=== PATIENT | male | born 1965 | race Caucasian/White ===

== ENCOUNTER 2016-06-16 08:57 | Emergency (ER) | payer MEDICAID, OTHER ==
[~2016-06-16] VITALS: Wt 90.0 kg
[~2016-06-16 08:57] MED LIST: EZET1TAB10 PO; HTN MED
--- NOTE | 2016-06-16 10:23 | ERD ---
ER Documentation Chief Complaint Date/Time DATE: 06/16/16 TIME: 10:21 Chief Complaint left eye redness for 1 day. back pain non traumatic and sore throat/cough HPI 51-year-old male who presents to the emergency room for throat pain and left eye redness for about 3 days. Exposed to her grandson who has conjunctivitis and throat pain that was treated with antibiotics. Also reports nontraumatic low back pain that is worse in movement. 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 Stated that he has a fever at home. He also reports that he used eyedrops to his left eye that was given by his brother. Denies headache, loss of consciousness, dizziness, eye trauma, blurry vision, changes in vision, pain on eye movement, photophobia, facial pain, ear pain, difficulty swallowing, neck pain, shoulder pain, chest pain, cough, hemoptysis, abdominal pain, loss of appetite, nausea, vomiting, hematochezia, diarrhea, constipation, urinary symptoms, bladder and bowel incontinences, extremity weakness, extremity tenderness, numbness or tingling sensation, difficulty walking, recent travel, recent antibiotic use in the last 3 months. Allergy: No known drug allergies. PMH: Hypertension, hyperlipidemia. Medications: Surgery: Right shoulder surgery. Family history: Denies. Primary Social History: Works as a final touch up painter. Occasional drinks alcoholic beverages. Denies smoking, use of alcohol, use of illegal drugs. ROS All systems reviewed and are negative except as per history of present illness. Medications Home Meds Active Scripts Ibuprofen* (Motrin*) 800 Mg Tab, 800 MG PO Q8H Y for PAIN AND OR ELEVATED TEMP, #30 TAB Prov:TELMA KIDD F 06/16/16 Amoxicillin* (Amoxicillin*) 500 Mg Cap, 500 MG PO TID for 7 Days, CAP Prov:PASILARAYMUNDO BALLARDAR F 06/16/16 Sulfacetamide Sodium* (Bleph-10*) 10%-15 Ml Opht Drops, 2 DROP LEFT EYE Q2H for 10 Days, #1 EA Prov:PASILABANRAYMUNDOAR F 06/16/16 Reported Medications [Htn Med] No Conflict Check 07/29/13 Ezetimibe-Simvastatin (Vytorin) 1 Tab Tablet, 1 TAB PO HS 07/29/13 Allergies Allergies: Coded Allergies: No Known Allergy (Unverified , 07/29/13) PMhx/Soc History of Surgery: Yes (VASECTOMY) Anesthesia Reaction: No Hx Neurological Disorder: No Hx Respiratory Disorders: No Hx Cardiac Disorders: Yes (HTN, HIGH CHOLESTEROL) Hx Psychiatric Problems: No Hx Miscellaneous Medical Probl: No Hx Alcohol Use: Yes Hx Substance Use: No Hx Tobacco Use: No Physical Exam Vitals Vital Signs Date Time Temp Pulse Resp B/P Pulse Ox O2 Delivery O2 Flow Rate FiO2 06/16/16 09:00 101.5 112 20 150/85 98 Physical Exam CONSTITUTIONAL: Well-appearing; well-nourished; in no apparent distress. HEAD: Normocephalic; atraumatic. EYES: Right eye: Conjunctiva clear, sclera non-icteric, EOM intact. PERRL Left eye: Conjunctival erythema with mild yellowish crusting. Pupil is reactive to light and accommodation. No signs of globe rupture. Extraocular movement of the eye is within normal limits and without pain. No changes in vision. Patient seen and observed texting. Ears: Hearing intact. EACs clear, TMs non-bulging, non-inflamed, translucent & mobile, ossicles normal appearance, No obstructions, no erythema, no discharges Nose: No obstructions. No polyps. No external lesions. Mucosa non-inflamed. No external lesions, septum and turbinates normal. No rhinorrhea. No discharges. Frontal sinus is non-tender to palpation. Maxillary sinus is non-tender to palpation. MOUTH: Moist mucous membranes, no lesion, no obstructions, no vesicles, no thrush, patent airway Throat: Uvula in midline. Right tonsil is +2 with erythema, no exudate. Left tonsil is +2 with erythema, no exudate. Tolerating secretions well. Good gag reflex. Patent airway. Neck: Supple, without lesions, bruits, or adenopathy. No mass. Thyroid non- enlarged and non-tender to palpation. CHEST: Symmetrical chest. Respirations even and not labored. No retractions noted. CARDIOVASCULAR: Normal S1, S2. RRR. No murmurs, gallops. RESPIRATORY: Normal chest excursion with respiration; breath sounds clear and equal bilaterally; no wheezes, rhonchi, or rales. Breathing even and unlabored. Speaking in clear, full, and complete sentences w/ ease. ABDOMEN: Normal bowel sounds normal. Soft, round, non-distended, non-guarding, no tenderness, no rebound, no organomegaly, no masses, no pulsating abdominal mass. No hernia. No peritoneal signs. : No CVA tenderness. BACK: Symmetrical shoulder. Spine is midline without deformity, tenderness. No evidence of trauma or deformity. Good and full range of motion of neck and spine with mild pain to lower back. Patient denies urinary symptoms, hematuria. PELVIS: Stable pelvis. No evidence of trauma or deformity. MUSCULOSKELETAL: Normal gait and station. No misalignment, asymmetry, crepitation, defects, tenderness, masses, effusions, decreased range of motion, instability, atrophy or abnormal strength or tone in the head, neck, spine, ribs , pelvis or extremities. No calf tenderness. NEUROVASCULAR: Distal pulses are present. Pedal pulse are present, equal, and normal. Capillary refills are < 2 seconds. NEUROLOGIC: Alert and oriented x4. Speaks full and clear sentences. Cranial Nerves II-XII normal. Sensation to pain, touch, and proprioception normal. Grossly unremarkable. No neurologic deficits. Romberg test is negative. PSYCHOLOGICAL: The patients mood and manner are appropriate. No hallucinations , delusions. Not SI. Not HI. Has the capacity to decide for self SKIN: Normal for age and ethnicity; warm; dry; good turgor; no apparent lesions or exudates. No rashes, hives, discoloration. Intact. Procedures/MDM Examination: Please see physical examination. Disease process, medical treatment was explained to the patient and family member. They verbalized understanding and agreed with the medical treatment, and follow-up care. Patient strongly refuses visual acuity. Stated that he does not have any trauma , changes in his vision. He also stated is able to read his text messages well. Treatment: Motrin. Re-evaluation: Denies pain. Extraocular movement of his eyes are within normal limits and without pain. No neurological deficits. Consultation: None. Differential diagnosis: Bacterial conjunctivitis versus viral conjunctivitis versus sinusitis versus strep pharyngitis versus tonsillitis versus upper respiratory infection Musculoskeletal spasms Medical decision makin-year-old male who presents to the emergency room for throat pain and left eye redness for about 3 days. Exposed to her grandson who has conjunctivitis and throat pain that was treated with antibiotics. Also reports nontraumatic low back pain that is worse in movement. 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 Stated that he has a fever at home. He also reports that he used eyedrops to his left eye that was given by his brother. Patient's complaint, patient's history about his complaint, my physical findings are consistent with my final diagnosis of bacterial conjunctivitis left eye, strep throat, musculoskeletal spasms. Medications prescribed are the following: Bleph-10 eyedrops. Amoxicillin. Motrin. Patient and family member are made aware of the side effects and adverse reactions of the medications prescribed. Instructed on when to seek emergent and medical attention in case allergic/anaphylactic reactions or severe side effects and or adverse reactions to medications. Patient and family member verbalized understanding. Patient instructed Instructed to follow-up with his PCP in 24-48 hours. Patient stated that they will make sure to see his own physician or primary care provider in the next 24- 48 hours. Instructed to Call 911 for chest pain, shortness of breath. Advised to come back here in ED as soon as possible for severity of symptoms which includes but not limited to: any new symptoms; shortness of breath/difficulty of breathing; cardiovascular changes; severe gastrointestinal symptoms; signs and symptoms of bleeding and or infection; signs of compartment syndrome/neurovascular changes; neurological changes/deficits. Patient and family member verbalized understanding. Upon discharge, patient is alert and oriented x 4, speaks full and clear sentences, denies pain, has no neurological deficits, has no neurovascular deficits, difficulty of breathing. Breathing even and unlabored. Lung sounds are clear to auscultation. Not in distress. Appears comfortable. Ambulatory with steady gait. Appears satisfied with care provided here in ED. Departure Diagnosis: Primary Impression: Conjunctivitis Additional Impressions: Tonsillitis Musculoskeletal pain Condition: Good Additional Instructions: Patient instructed Instructed to follow-up with his PCP in 24-48 hours. Patient stated that they will make sure to see his own physician or primary care provider in the next 24- 48 hours. Instructed to Call 911 for chest pain, shortness of breath. Advised to come back here in ED as soon as possible for severity of symptoms which includes but not limited to: any new symptoms; shortness of breath/difficulty of breathing; cardiovascular changes; severe gastrointestinal symptoms; signs and symptoms of bleeding and or infection; signs of compartment syndrome/neurovascular changes; neurological changes/deficits. Patient and family member verbalized understanding. TELMA KIDD Jun 16, 2016 10:23
[2016-06-16] MEDS ORDERED: SULF15DR19 LEFT EYE (10:28)
[2016-06-16] MEDS ORDERED: AMO500 PO (10:29)
[2016-06-16] MEDS ORDERED: IBUP800T25 PO (10:29)
[2016-06-16 10:43] VITALS: BP 142/85; PULSE 98; RESP 20; TEMP 101
[2016-06-16] MEDS ORDERED: IBUPROFEN 800 MG TAB PO ONE (11:00)
== END 2016-06-16 10:43 | disposition home or self-care (01) ==
LOC: FTE 08:57 → EDSEX 08:57 → FTE 10:43
DX: H10.9 Unspecified conjunctivitis (principal); J03.90 Acute tonsillitis, unspecified; M54.5 Low back pain; I10 Essential (primary) hypertension
CPT/HCPCS: 99284

== ENCOUNTER 2017-02-20 00:14 | Emergency (ER) | payer OTHER ==
[~2017-02-20] VITALS: Ht 175.3 cm; Wt 81.6 kg
[~2017-02-20 00:14] MED LIST changes: +AMOX500C2 PO; +IBUP800T25 PO; +SULF15DR19 LEFT EYE
[2017-02-20 00:20] VITALS: Ht 175.3 cm; Wt 81.6 kg
--- NOTE | 2017-02-20 01:00 | ERD ---
ER Documentation Chief Complaint Chief Complaint suicidal ideation w/ homicidao ideation- hurt and family and self HPI The patient is a 51-year-old male, presenting to the ER because he has had thoughts of hurting his and his family intermittently for 1 month. He denies auditory/visual hallucination. He denies headache, neck pain, chest pain , dyspnea, abdominal pain, vomiting, dysuria, diarrhea. He does not smoke nor drink nor does illicit drug Medical history: Hypertension Surgical history: Vasectomy ROS All systems reviewed and are negative except as per history of present illness. Medications Home Meds Active Scripts Ibuprofen* (Motrin*) 800 Mg Tab, 800 MG PO Q8H Y for PAIN AND OR ELEVATED TEMP, #30 TAB Prov:MARIUMILATELMA BALLARD 06/16/16 Amoxicillin* (Amoxicillin*) 500 Mg Cap, 500 MG PO TID for 7 Days, CAP Prov:TELMA KIDD F 06/16/16 Sulfacetamide Sodium* (Bleph-10*) 10%-15 Ml Opht Drops, 2 DROP LEFT EYE Q2H for 10 Days, #1 EA Prov:TELMA KIDD 06/16/16 Reported Medications [Htn Med] No Conflict Check 07/29/13 Ezetimibe-Simvastatin (Vytorin) 1 Tab Tablet, 1 TAB PO HS 07/29/13 Allergies Allergies: Coded Allergies: No Known Allergy (Unverified , 07/29/13) PMhx/Soc History of Surgery: Yes (VASECTOMY) Anesthesia Reaction: No Hx Neurological Disorder: No Hx Respiratory Disorders: No Hx Cardiac Disorders: Yes (HTN, HIGH CHOLESTEROL) Hx Psychiatric Problems: No Hx Miscellaneous Medical Probl: No Hx Alcohol Use: Yes Hx Substance Use: No Hx Tobacco Use: No Physical Exam Vitals Vital Signs Date Time Temp Pulse Resp B/P Pulse Ox O2 Delivery O2 Flow Rate FiO2 02/20/17 00:20 98.3 66 20 142/80 98 Physical Exam Const: No acute distress. Head: Atraumatic. Eyes: Normal Conjunctiva. ENT: Normal External Ears, Nose and Mouth. Neck: Full range of motion. No meningismus. Resp: Clear to auscultation bilaterally. Cardio: Regular rate and rhythm. Abd: Soft, non distended, normal bowel sounds, non tender. Skin: No petechiae or rashes. Back: No midline or flank tenderness. Ext: No cyanosis, or edema. Neur: Awake and alert. No focal deficit Psych: Depressed and anxious Result Diagram: 02/20/1710902/20/17 011 Results 24 hrs Laboratory Tests Test 02/20/17 01:10 White Blood Count 10.510^3/ul Red Blood Count 4.4010^6/ul Hemoglobin 14.4g/dl Hematocrit 40.5% Mean Corpuscular Volume 92.0fl Mean Corpuscular Hemoglobin 32.7pg Mean Corpuscular Hemoglobin Concent 35.6g/dl Red Cell Distribution Width 12.3% Platelet Count 49416^3/UL Mean Platelet Volume 10.9fl Neutrophils % 62.4% Lymphocytes % 29.6% Monocytes % 6.7% Eosinophils % 0.4% Basophils % 0.7% Nucleated Red Blood Cells % 0.0/100WBC Neutrophils # 6.610^3/ul Lymphocytes # 3.110^3/ul Monocytes # 0.710^3/ul Eosinophils # 0.010^3/ul Basophils # 0.110^3/ul Nucleated Red Blood Cells # 0.010^3/ul Sodium Level 144mmol/L Potassium Level 3.8mmol/L Chloride Level 106mmol/L Carbon Dioxide Level 23mmol/L Anion Gap 19 Blood Urea Nitrogen 22mg/dl Creatinine 1.00mg/dl Glucose Level 101mg/dl Calcium Level 10.1mg/dl Total Bilirubin 0.5mg/dl Direct Bilirubin 0.00mg/dl Indirect Bilirubin 0.5mg/dl Aspartate Amino Transf (AST/SGOT) 42IU/L Alanine Aminotransferase (ALT/SGPT) 77IU/L Alkaline Phosphatase 75IU/L Total Protein 8.3g/dl Albumin 4.8g/dl Globulin 3.50g/dl Albumin/Globulin Ratio 1.37 Salicylates Level Pending Acetaminophen Level Pending Ethyl Alcohol Level Pending Procedures/MDM MEDICAL MAKING DECISION: The patient is a 51-year-old male, presenting with acute suicidal and homicidal ideation. He was treated with Valium 5 mg twice daily as recommended by telepsychiatrist The differential diagnoses considered include but are not limited to depression , anxiety, new onset psychiatric illness, Departure Diagnosis: Primary Impression: Suicidal ideation Additional Impression: Homicidal ideation Condition: Stable Comments He was evaluated by telepsychiatrist Dr. Leonardo who put on 5150 hold GORDON JONES MD Feb 20, 2017 01:00
[2017-02-20 01:32] LABS: BASOPHIL # 0.1 10^3/ul (0.0-0.1); BASOPHILS % 0.7 % (0.0-2.0); EOSINOPHILS % 0.4 % (0.0-7.0); HEMATOCRIT 40.5 % (42.0-52.0); HEMOGLOBIN 14.4 g/dl (14.0-18.0); LYMPHOCYTES # 3.1 10^3/ul (0.8-2.9); LYMPHOCYTES % 29.6 % (15.0-51.0); MEAN CORPUSCULAR HEMOGLOBIN 32.7 pg (29.0-33.0); MEAN CORPUSCULAR HGB CONC 35.6 g/dl (32.0-37.0); MEAN PLATELET VOLUME 10.9 fl (7.4-10.4); MONOCYTE # 0.7 10^3/ul (0.3-0.9); MONOCYTES % 6.7 % (0.0-11.0); NEUTROPHIL # 6.6 10^3/ul (1.6-7.5); NEUTROPHILS % 62.4 % (39.0-77.0); PLATELET COUNT 259 10^3/UL (140-415); RED CELL DISTRIBUTION WIDTH 12.3 % (11.5-14.5); WHITE BLOOD COUNT 10.5 10^3/ul (4.8-10.8)
[2017-02-20 01:44] LABS: ALANINE AMINOTRANSFERASE 77 IU/L (13-69); ALBUMIN 4.8 g/dl (3.3-4.9); ALBUMIN/GLOBULIN RATIO 1.37; ALKALINE PHOSPHATASE 75 IU/L (42-121); ANION GAP 19 (8-16); ASPARTATE AMINO TRANSFERASE 42 IU/L (15-46); BILIRUBIN,INDIRECT 0.5 mg/dl (0-1.1); BILIRUBIN,TOTAL 0.5 mg/dl (0.2-1.3); BLOOD UREA NITROGEN 22 mg/dl (7-20); CALCIUM 10.1 mg/dl (8.4-10.2); CARBON DIOXIDE 23 mmol/L (21-31); CHLORIDE 106 mmol/L (97-110); GLUCOSE 101 mg/dl (70-220); POTASSIUM 3.8 mmol/L (3.5-5.1); SODIUM 144 mmol/L (135-144); TOTAL PROTEIN 8.3 g/dl (6.1-8.1)
[2017-02-20 02:04] LABS: ACETAMINOPHEN < 10.0 ug/ml (10.0-30.0); ETHANOL < 10.0 mg/dl; SALICYLATE < 1.0 mg/dl (5.0-30.0)
[2017-02-20 02:14] LABS: BARBITURATES Negative (NEGATIVE); BENZODIAZEPINES Negative (NEGATIVE); CANNABINOIDS Negative (NEGATIVE); COCAINE Negative (NEGATIVE); OPIATES Negative (NEGATIVE)
[2017-02-20] MEDS ORDERED: DIAZEPAM 5 MG TAB PO ONE (02:30)
[2017-02-20 03:01] LABS: ADD UMIC YES; UR AMORPHOUS CRYSTAL MANY /HPF (NONE SEEN); UR ASCORBIC ACID NEGATIVE (NEGATIVE); UR BILIRUBIN (Dip) NEGATIVE (NEGATIVE); UR BLOOD (Dip) 1+ mg/dL (NEGATIVE); UR CLARITY TURBID (CLEAR); UR COLOR YELLOW (YELLOW); UR GLUCOSE (Dip) 2+ mg/dL (NEGATIVE); UR KETONES (Dip) NEGATIVE (NEGATIVE); UR LEUKOCYTE ESTERASE (Dip) NEGATIVE Leu/ul (NEGATIVE); UR MUCUS FEW /HPF (NONE SEEN); UR NITRITE (Dip) NEGATIVE (NEGATIVE); UR RBC 20 /HPF (0-5); UR SPECIFIC GRAVITY (Dip) 1.028 (1.003-1.030); UR SQUAMOUS EPITHELIAL CELL FEW /HPF (FEW); UR TOTAL PROTEIN (Dip) NEGATIVE (NEGATIVE); UR URIC ACID CRYSTAL MODERATE /HPF (NONE SEEN); UR UROBILINOGEN (Dip) NEGATIVE (NEGATIVE)
--- NOTE | 2017-02-20 03:36 | PSY ---
Date/Time of Note Date/Time of Note DATE: 02/20/17 TIME: 03:27 Psychiatric Subjective Eval Subjective Evaluation Patient location: emergency Chief Complaint: suicidal ideation w/ homicidal ideation- hurt and family and self Reason for consult: SI/ HI History of present illness patient is a 51 yo male with no PPH who came to the ER due to worsening thoughts of hurting his that started about one months ago, he states that he has no reason for wanted to hurt her, he gets along well with her, loves her , they have a good relationship and he is feeling really bad about these ideations, he is not able to watch any violent shows or he wants to hurt people or himself, he denies any hallucination, no other obsessive thoughts, one month ago the only change in his life was to start a HTN medication and anti cholesterol medication, denies any depressive symptoms before one month ago, he has been very depressed and anxious for the past month due to his violent obsessions. no SI or HI but intrusive obsessive thoughts. Past psychiatric history none Hospitalization: no Family History none Medical history Problems Medical Problems: (1) Conjunctivitis Status: Acute (2) Homicidal ideation Status: Acute (3) Musculoskeletal pain Status: Acute (4) Suicidal ideation Status: Acute (5) Tonsillitis Status: Acute Allergies: Coded Allergies: No Known Allergy (Unverified , 07/29/13) Substance Abuse Substance use: No known substance abuse Social History Marital status: Level of education: hs DPA/Conservatorship: No Occupation/Residential: no Psychiatric Objective Eval Review of Systems: Review of Systems: Not Applicable Physical Examination: Physical Examination: Applicable Sleep: Insomnia Appetite: Decreased Energy: Decreased Interest: Decreased Mental Status Examination: Appearance: Groomed Eye Contact: Good Psychomotor Activity: Normal Behavior: Cooperative Speech: Clear AFFECT: Depressed Mood: Depressed Though Process: Linear (d) Thought Content: Normal Suicidal: No Homicidal: Yes On 72 hour hold: No Orientation: x2 Cognition: Alert Insight: Impared Judgement: Impared Attention Span: Intact Laboratory Results Laboratory Tests Test 02/20/17 01:10 White Blood Count 10.510^3/ul Red Blood Count 4.4010^6/ul Hemoglobin 14.4g/dl Hematocrit 40.5% Mean Corpuscular Volume 92.0fl Mean Corpuscular Hemoglobin 32.7pg Mean Corpuscular Hemoglobin Concent 35.6g/dl Red Cell Distribution Width 12.3% Platelet Count 97216^3/UL Mean Platelet Volume 10.9fl Neutrophils % 62.4% Lymphocytes % 29.6% Monocytes % 6.7% Eosinophils % 0.4% Basophils % 0.7% Nucleated Red Blood Cells % 0.0/100WBC Neutrophils # 6.610^3/ul Lymphocytes # 3.110^3/ul Monocytes # 0.710^3/ul Eosinophils # 0.010^3/ul Basophils # 0.110^3/ul Nucleated Red Blood Cells # 0.010^3/ul Urine Color YELLOW Urine Clarity TURBID Urine pH 5.0 Urine Specific [place] 1.028 Urine Ketones NEGATIVEmg/dL Urine Nitrite NEGATIVEmg/dL Urine Bilirubin NEGATIVEmg/dL Urine Urobilinogen NEGATIVEmg/dL Urine Leukocyte Esterase NEGATIVELeu/ul Urine Microscopic RBC 20/HPF Urine Microscopic WBC 0/HPF Urine Squamous Epithelial Cells FEW/HPF Urine Uric Acid Crystals MODERATE/HPF Urine Amorphous Crystals MANY/HPF Urine Mucus FEW/HPF Urine Hemoglobin 1+mg/dL Urine Glucose 2+mg/dL Urine Total Protein NEGATIVEmg/dl Sodium Level 144mmol/L Potassium Level 3.8mmol/L Chloride Level 106mmol/L Carbon Dioxide Level 23mmol/L Anion Gap 19 Blood Urea Nitrogen 22mg/dl Creatinine 1.00mg/dl Glucose Level 101mg/dl Calcium Level 10.1mg/dl Total Bilirubin 0.5mg/dl Direct Bilirubin 0.00mg/dl Indirect Bilirubin 0.5mg/dl Aspartate Amino Transf (AST/SGOT) 42IU/L Alanine Aminotransferase (ALT/SGPT) 77IU/L Alkaline Phosphatase 75IU/L Total Protein 8.3g/dl Albumin 4.8g/dl Globulin 3.50g/dl Albumin/Globulin Ratio 1.37 Salicylates Level < 1.0mg/dl Urine Opiates Screen Negative Acetaminophen Level < 10.0ug/ml Urine Barbiturates Negative Urine Amphetamines Screen Negative Urine Benzodiazepines Screen Negative Urine Cocaine Screen Negative Urine Cannabinoids Negative Ethyl Alcohol Level < 10.0mg/dl Assessment and Plan Assessment/Diagnosis Mission I: obsessive compulsive do mood do nos Mission II: deferred Mission III: htn high cholesterol Mission IV: poor social support Mission V: gaf 25 Recommendation/Plan Medication Management stop his HTN and cholesteral medication valium 5 mg po bid Follow-up/Disposition Please admit patient on voluntary status due to Danger to others In my opinion, patient currently MEETS criterion for inpatient care and CANNOT be safely treated ~at a lower level of care today as evidenced by the following risk factors: ~Current and Recent homicidal Ideation Intense feelings of hopelessness and lack of future orientation. Significant recent DETERIORATION in function, behavior and thought processes [id number] Recommendation: MARTHA Flores MD Feb 20, 2017 03:36
[2017-02-20 06:45] VITALS: BP 125/74; PULSE 78; RESP 17; TEMP 97.9
[2017-02-20] MEDS ORDERED: DIAZEPAM 5 MG TAB PO SCH (09:00)
== END 2017-02-20 09:56 ==
LOC: E/R 00:14
DX: R45.851 Suicidal ideations (principal); R45.850 Homicidal ideations; I10 Essential (primary) hypertension
CPT/HCPCS: 36415; 80053; 80306; 80307; 81001; 85025; Z7502; Z7610

== ENCOUNTER 2018-01-20 13:33 | Inpatient (IN) | END 2018-01-24 11:03 | disposition home or self-care (01) | DRG 419 ==

== ENCOUNTER 2018-07-27 21:08 | Emergency (ER) | payer OTHER ==
[~2018-07-27] VITALS: Wt 97.8 kg
[~2018-07-27 21:08] MED LIST changes: +AMOX1TAB10 PO; -AMOX500C2 PO; +CLON1TAB13 PO; -EZET1TAB10 PO; -HTN MED; -IBUP800T25 PO; +QUET150T2 PO; +QUET50TA PO; -SULF15DR19 LEFT EYE
--- NOTE | 2018-07-27 21:44 | ERD ---
ER Documentation Chief Complaint Chief Complaint AP X'S 6 DAYS HPI The patient is a 53-year-old male, presenting to the ER because of intermittent abdominal discomfort for the last 6 days, complains of frequent belching and flatulance that relieved abdominal discomfort, worse with eating. Denies fever, chills, neck pain, chest pain, vomiting, dizzy, diarrhea, constipation. He does not smoke nor drink Past medical history: Anxiety, depression, mood disorder, hypertension Past surgical history: Cholecystectomy ROS All systems reviewed and are negative except as per history of present illness. Medications Home Meds Active Scripts Simethicone (GAS-X ULTRA STRENGTH) 180 Mg Capsule, 180 MG PO TID, #20 CAP Prov:GORDON JONES MD 07/27/18 Amoxicillin/Potassium Clav (Amox-Clav 875-125 mg Tablet) 875-125 mg Tab, 1 TAB PO BID for 3 Days, #6 TAB Prov:MASHA ORTIZ MD 01/24/18 Reported Medications Clonazepam* (Clonazepam*) 1 Mg Tablet, 1 MG PO BID PRN for ANXIETY, TAB 01/20/18 Quetiapine Fumarate* (Seroquel* XR) 150 Mg Tab.sr.24h, 150 MG PO QPM, #30 TAB 01/20/18 Quetiapine Fumarate* (Seroquel*) 50 Mg Tablet, 50 MG PO QAM, TAB 01/20/18 Allergies Allergies: Coded Allergies: No Known Allergy (Unverified , 01/20/18) PMhx/Soc History of Surgery: Yes (choley) Anesthesia Reaction: No Hx Neurological Disorder: No Hx Respiratory Disorders: No Hx Cardiac Disorders: Yes (HTN, HDL) Hx Psychiatric Problems: Yes (Anxiety, Depression) Hx Miscellaneous Medical Probl: No Hx Alcohol Use: No Hx Substance Use: No Hx Tobacco Use: No Smoking Status: Never smoker Physical Exam Vitals Vital Signs Date Temp Pulse Resp B/P (MAP) Pulse Ox O2 O2 Flow FiO2 Time Delivery Rate 07/27/18 98.6 72 16 148/89 100 Room Air 23:45 (108) 07/27/18 70 16 168/114 100 Room Air 21:42 (132) 07/27/18 91.2 74 18 198/111 97 21:15 (140) Physical Exam Const: No acute distress. Head: Atraumatic. Eyes: Normal Conjunctiva. ENT: Normal External Ears, Nose and Mouth. Neck: Full range of motion. No meningismus. Resp: Clear to auscultation bilaterally. Cardio: Regular rate and rhythm. Abd: Soft, non distended, normal bowel sounds, non tender. Skin: No petechiae or rashes. Back: No midline or flank tenderness. Ext: No cyanosis, or edema. Neur: Awake and alert. No focal deficit Psych: Normal Mood and Affect. Result Diagram: 07/27/18219907/27/182199 Results 24 hrs Laboratory Tests Test 07/27/18 22:00 07/27/18 22:06 White Blood Count 8.1 10^3/ul Red Blood Count 4.87 10^6/ul Hemoglobin 15.3 g/dl Hematocrit 44.2 % Mean Corpuscular Volume 90.8 fl Mean Corpuscular Hemoglobin 31.4 pg Mean Corpuscular Hemoglobin Concent 34.6 g/dl Red Cell Distribution Width 13.2 % Platelet Count 215 10^3/UL Mean Platelet Volume 11.0 fl Immature Granulocytes % 0.400 % Neutrophils % 47.7 % Lymphocytes % 43.5 % Monocytes % 4.6 % Eosinophils % 2.7 % Basophils % 1.1 % Nucleated Red Blood Cells % 0.0 /100WBC Immature Granulocytes # 0.030 10^3/ul Neutrophils # 3.9 10^3/ul Lymphocytes # 3.5 10^3/ul Monocytes # 0.4 10^3/ul Eosinophils # 0.2 10^3/ul Basophils # 0.1 10^3/ul Nucleated Red Blood Cells # 0.0 10^3/ul Sodium Level 146 mmol/L Potassium Level 3.8 mmol/L Chloride Level 106 mmol/L Carbon Dioxide Level 30 mmol/L Anion Gap 10 Blood Urea Nitrogen 13 mg/dl Creatinine 1.18 mg/dl Est Glomerular Filtrat Rate mL/min > 60 mL/min Glucose Level 106 mg/dl Calcium Level 9.8 mg/dl Magnesium Level 2.3 mg/dl Total Bilirubin 0.4 mg/dl Direct Bilirubin 0.00 mg/dl Indirect Bilirubin 0.4 mg/dl Aspartate Amino Transf (AST/SGOT) 27 IU/L Alanine Aminotransferase (ALT/SGPT) 28 IU/L Alkaline Phosphatase 75 IU/L Total Protein 8.4 g/dl Albumin 4.8 g/dl Globulin 3.60 g/dl Albumin/Globulin Ratio 1.33 Lipase 233 U/L Bedside Urine pH (LAB) 7.0 Bedside Urine Protein (LAB) Negative Bedside Urine Glucose (UA) 0.1% Bedside Urine Ketones (LAB) Negative Bedside Urine Blood Negative Bedside Urine Nitrite (LAB) Negative Bedside Urine Leukocyte Esterase (L Negative Procedures/MDM EKG: Read by emergency physician Rate/Rhythm: Normal Sinus Rhythm QRS, ST, T-waves: No ST elevation, no T inversion, PVC Impression: Abnormal EKG MEDICAL MAKING DECISION: The patient is a 53-year-old male, presenting to the ER because of abdominal discomfort, most likely due to increase flatulence, is stable for outpatient follow-up He was noticed to have occasional PVC on the monitor The differential diagnoses considered include but are not limited to choledocholithiasis, cholangitis, pancreatitis, hepatitis, gastritis, peptic ulcer disease, gastric ulcer, appendicitis, cystitis, diverticulitis, partial small bowel obstruction. Departure Diagnosis: Primary Impression: Abdominal pain Additional Impression: PVC (premature ventricular contraction) Condition: Good Comments He was discharged with simethicone I discussed the findings with the patient. I advised the patient to follow-up with the primary physician in about 2-3 days for reevaluation and referral to cardiology for PVC, sooner if needed and return if any concern. Disclaimer: Inadvertent spelling and grammatical errors are likely due to EHR/dictation software use and do not reflect on the overall quality of patient care. Also, please note that the electronic time recorded on this note does not necessarily reflect the actual time of the patient encounter. GORDON JONES MD July 27, 2018 21:44
[2018-07-27] MEDS ORDERED: SIME180C4 PO (23:20)
[2018-07-27 23:45] VITALS: BP 148/89; PULSE 72; RESP 16
== END 2018-07-27 23:46 | disposition home or self-care (01) ==
LOC: E/R 21:08
DX: I49.3 Ventricular premature depolarization (principal); I10 Essential (primary) hypertension
CPT/HCPCS: 36415; 80053; 81003; 83690; 83735; 85025; 93005; Z7502

== ENCOUNTER 2018-08-03 12:36 | Inpatient (IN) | payer OTHER ==
[~2018-08-03] VITALS: Ht 170.2 cm; Wt 87.1 kg
[~2018-08-03 12:36] MED LIST changes: +SIME180C4 PO
[2018-08-03 12:38] VITALS: Ht 170.2 cm; Wt 87.1 kg
--- NOTE | 2018-08-03 13:18 | ERD ---
ER Documentation Chief Complaint Chief Complaint Pt with c/o epigastric AP radiating to back, denies N/V/D, cholecystectomy HPI The patient is a 53-year-old male, presenting to the ER because of vomiting abdominal pain for the last 12days. He noticed dark urine and yellowish skin since yesterday. He thought it might be from the turmeric that he took. He complains of frequent belching and flatulance that relieved abdominal disc omfort, worse with eating. He denies fever, chills, neck pain, chest pain, vomiting, dizzy, diarrhea, constipation. He does not smoke nor drink Past medical history: Anxiety, depression, mood disorder, hypertension Past surgical history: Cholecystectomy ROS All systems reviewed and are negative except as per history of present illness. Medications Home Meds Reported Medications Clonazepam* (Clonazepam*) 1 Mg Tablet, 1 MG PO BID PRN for ANXIETY, TAB 01/20/18 Quetiapine Fumarate* (Seroquel* XR) 150 Mg Tab.sr.24h, 150 MG PO QPM, #30 TAB 01/20/18 Quetiapine Fumarate* (Seroquel*) 50 Mg Tablet, 50 MG PO QAM, TAB 01/20/18 Discontinued Scripts Simethicone (GAS-X ULTRA STRENGTH) 180 Mg Capsule, 180 MG PO TID, #20 CAP Prov:GORDON JONES MD 07/27/18 Amoxicillin/Potassium Clav (Amox-Clav 875-125 mg Tablet) 875-125 mg Tab, 1 TAB PO BID for 3 Days, #6 TAB Prov:MASHA ORTIZ MD 01/24/18 Allergies Allergies: Coded Allergies: No Known Allergy (Unverified , 08/03/18) PMhx/Soc History of Surgery: Yes (cholecystectomy) Anesthesia Reaction: No Hx Neurological Disorder: No Hx Respiratory Disorders: No Hx Cardiac Disorders: Yes (HTN, HDL) Hx Psychiatric Problems: Yes (Anxiety, Depression) Hx Miscellaneous Medical Probl: No Hx Alcohol Use: No Hx Substance Use: No Hx Tobacco Use: No Smoking Status: Never smoker Physical Exam Vitals Vital Signs Date Temp Pulse Resp B/P (MAP) Pulse Ox O2 O2 Flow FiO2 Time Delivery Rate 08/03/18 88 23 151/110 96 17:22 (124) 08/03/18 97 19 121/105 98 16:37 (110) 08/03/18 108 26 146/102 96 14:20 (117) 08/03/18 99.9 112 18 167/113 94 12:38 (131) Physical Exam Const: No acute distress. Jaundice Head: Atraumatic Eyes: Normal Conjunctiva ENT: Normal External Ears, Nose and Mouth. Neck: Full range of motion. No meningismus. Resp: Clear to auscultation bilaterally Cardio: Regular rate and rhythm, no murmurs Abd: Soft, non tender, non distended. Normal bowel sounds Skin: No petechiae or rashes Back: No midline or flank tenderness Ext: No cyanosis, or edema Neur: Awake and alert Psych: Normal Mood and Affect Result Diagram: 08/03/18 1345 08/03/18 1345 Results 24 hrs Laboratory Tests Test 08/03/18 13:45 White Blood Count 7.0 10^3/ul Red Blood Count 5.04 10^6/ul Hemoglobin 15.8 g/dl Hematocrit 46.5 % Mean Corpuscular Volume 92.3 fl Mean Corpuscular Hemoglobin 31.3 pg Mean Corpuscular Hemoglobin Concent 34.0 g/dl Red Cell Distribution Width 13.5 % Platelet Count 146 10^3/UL Mean Platelet Volume 11.2 fl Immature Granulocytes % 0.600 % Neutrophils % 82.1 % Lymphocytes % 12.1 % Monocytes % 4.5 % Eosinophils % 0.1 % Basophils % 0.6 % Nucleated Red Blood Cells % 0.0 /100WBC Immature Granulocytes # 0.040 10^3/ul Neutrophils # 5.8 10^3/ul Lymphocytes # 0.9 10^3/ul Monocytes # 0.3 10^3/ul Eosinophils # 0.0 10^3/ul Basophils # 0.0 10^3/ul Nucleated Red Blood Cells # 0.0 10^3/ul Prothrombin Time 12.4 Sec Prothrombin Time Ratio 1.0 INR International Normalized Ratio 0.91 Activated Partial Thromboplast Time 33.6 Sec Urine Color DARY Urine Clarity CLEAR Urine pH 5.0 Urine Specific [place] 1.024 Urine Ketones 1+ mg/dL Urine Nitrite NEGATIVE mg/dL Urine Bilirubin 2+ mg/dL Urine Urobilinogen 2+ mg/dL Urine Leukocyte Esterase NEGATIVE [place] Urine Microscopic RBC 1 /HPF Urine Microscopic WBC 2 /HPF Urine Mucus FEW /HPF Urine Hemoglobin 1+ mg/dL Urine Glucose 2+ mg/dL Urine Total Protein NEGATIVE mg/dl Sodium Level 144 mmol/L Potassium Level 3.6 mmol/L Chloride Level 104 mmol/L Carbon Dioxide Level 25 mmol/L Anion Gap 15 Blood Urea Nitrogen 11 mg/dl Creatinine 1.15 mg/dl Est Glomerular Filtrat Rate mL/min > 60 mL/min Glucose Level 163 mg/dl Calcium Level 10.0 mg/dl Total Bilirubin 4.7 mg/dl Direct Bilirubin 3.00 mg/dl Indirect Bilirubin 1.7 mg/dl Aspartate Amino Transf (AST/SGOT) 387 IU/L Alanine Aminotransferase (ALT/SGPT) 994 IU/L Alkaline Phosphatase 225 IU/L Total Protein 8.4 g/dl Albumin 4.9 g/dl Globulin 3.50 g/dl Albumin/Globulin Ratio 1.40 Lipase 187 U/L Hepatitis B Surface Antigen NEGATIVE Hepatitis C Antibody NEGATIVE Current Medications Medications Dose Sig/Yenny Start Time Status Last (Trade) Ordered Route PRN Stop Time Admin Dose Reason Admin 100 mg ONCE ONCE 08/04/18 Indomethacin ME 16:30 (Indocin 08/04/18 16:31 Supp) Sodium 1,000 ml @ [id number] IV 08/03/18 08/03/18 Chloride 75 mls/hr 16:49 17:19 IV Flush 3 ml PER 08/03/18 (NS 3 ml) PROTOCOL IV 17:00 Ondansetron 4 mg Q6H PRN 08/03/18 08/03/18 HCl (Zofran IV 17:00 17:15 Inj) NAUSEA/VOMITI NG Famotidine 20 mg DAILY IV 08/03/18 08/03/18 (Pepcid Iv) 17:30 17:15 Clonazepam 1 mg BID PRN 08/03/18 (Klonopin) PO ANXIETY 17:00 Quetiapine 50 mg QAM PO 08/04/18 Fumarate 09:00 (Seroquel) 150 mg QPM PO 08/03/18 UNV Miscellaneous 21:00 Information Procedures/[place] [id number] Radiology Main Line: [phone] DIAGNOSTIC IMAGING REPORT Patient: RJ BARRON : 1965 Age: 53 Sex: M MR #: [id number] DOS: 08/03/18 1326 Ordering MD: GORDON JONES MD Location: E/R Room/Bed: PROCEDURE: CT Abdomen and Pelvis without intravenous contrast. CLINICAL INDICATION: Abdominal Pain . TECHNIQUE: CT scan of the abdomen and pelvis without intravenous contrast was performed on a multi-detector high-resolution CT scanner. Coronal and sagittal reformatted images were obtained from the axial source images. DICOM images are available. CTDIvol 15.54 mGy, and DLP 980.03 mGy.cm. One or more of the following dose reduction techniques were used: - Automated exposure control. - Adjustment of the mA and/or kV according to patient size. - Use of iterative reconstruction technique. COMPARISON: MR 01/20/2018; CT 01/20/2018 FINDINGS: In the absence of intravenous contrast, the study constitutes a limited assessment of the solid organs, bowel and vessels. Lower thorax: Normal. Liver: Normal. Biliary: Postsurgical changes of cholecystectomy. No intrahepatic or extrahepatic biliary dilatation. Common bile duct measures up to 7 mm in diameter. There is a linear hyperdensity at the distal common bile duct which appears to extend to the duodenum, and measures approximately 6 mm in length. Pancreas: Normal. Spleen: Normal. Adrenal Glands: Normal. Urinary: Normal. Gastrointestinal: Stomach and small bowel are within normal limits. Appendix is unremarkable. There is sigmoid colon diverticula without evidence of diverticulitis. Lymph nodes: No enlarged abdominal or pelvic lymph nodes. Vascular: Normal. Peritoneum/mesentery: No free fluid or free air. Tiny fat containing periumbilical hernia. Reproductive organs: Normal. Musculoskeletal: Mild degenerative changes of the spine. Partial transitional anatomy of the lumbosacral spine. IMPRESSION: Thin hyperdensity at the distal common bile duct may represent tiny layering common bile duct stones versus postsurgical changes. Correlate with procedural history. Common bile duct diameter is at the upper limits of normal. Correlate with serum bilirubin for biliary obstruction. If clinically indicated, MRCP may be performed for further evaluation. RPTAT: HH Physician Veronica Date Time Electronically viewed and signed by Physician Veronica on 08/03/2018 14:26 HtN/ CC: GORDON JONES MD [phone] MEDICAL MAKING DECISION: The patient is a 53-year-old male, presenting with acute jaundice, most likely due to acute choledocholithiasis. The differential diagnoses considered include but are not limited to cholelithiasis, cholecystitis, choledocholithiasis, cholangitis, pancreatitis, hepatitis, gastritis, peptic ulcer disease, gastric ulcer, appendicitis, cystitis, diverticulitis, partial small bowel obstruction. Departure Diagnosis: Primary Impression: Jaundice Additional Impression: Choledocholithiasis Condition: Stable Comments Consultation: I discussed the patient with Dr. Quijano's ACCOUNTS ADJUSTABLE CLERK at 3:10p, who was made aware of the lab, the treatment, the patient condition I discussed the findings with the patient. I discussed the patient with Dr Dempsey at 3:20p , who was made aware of the lab, the treatment, the patient condition. The patient is admitted to [facility] Disclaimer: Inadvertent spelling and grammatical errors are likely due to EHR/dictation software use and do not reflect on the overall quality of patient care. Also, please note that the electronic time recorded on this note does not necessarily reflect the actual time of the patient encounter. GORDON JONES MD August 03, 2018 13:18
--- NOTE | 2018-08-03 15:44 | CONS ---
Assessment/Plan Assessment/Plan Hospital Course (Demo Recall) Summary Assessment and Plan: Assessment: Elevated LFTs with Direct hyperbilirubinemia -Likely 2/2 to choledocholithiasis -CT abb/pelvis - Thin hyperdensity at the distal common bile duct may r epresent tiny layering common bile duct stones versus postsurgical changes History of laparoscopic subtotal cholecystectomy- 2018 Depression/Anxiety Plan: Clear liquid diet Hepatitis panel ERCP tomorrow Endoscopy - risks/benefits/alternatives/indications of procedure and sedation/anesthesia discussed with patient who states understanding and gives informed consent to proceed. Monitor labs Patient seen in collaboration with Dr. Quijano CC: CHASTITY QUIJANO MD ; Consultation Date/Type/Reason Admit Date/Time Date of Consultation: August 03, 2018 Type of Consult GI Reason for Consultation Elevated LFTS with Direct Hyperbilirubinemia R/o choledocholithiasis Date/Time of Note DATE: 08/03/18 TIME: 15:32 Hx of Present Illness This is a 53 year old male with PMH of depression/anxiety who presented to the ED with c/o upper abd pain with radiation to the back off and on for 6 days, as well as yellowing of the skin. Pt found to have elevated LFTs with direct hyperbilirubinemia. CT abd/pelvis with out contrast was completed showing thin hyperdensity at the distal common bile duct may represent tiny layering common bile duct stones versus postsurgical changes. Given clinical picture plan to proceed with ERCP. I discussed risks/benefits of sedation and procedure. Patient verbalized understanding and is agreeable to procedure. Review of Systems: A 12 system, review was conducted and is negative except as noted in the HPI or here. Past Medical History Home Meds Reported Medications Clonazepam* (Clonazepam*) 1 Mg Tablet, 1 MG PO BID PRN for ANXIETY, TAB 01/20/18 Quetiapine Fumarate* (Seroquel* XR) 150 Mg Tab.sr.24h, 150 MG PO QPM, #30 TAB 01/20/18 Quetiapine Fumarate* (Seroquel*) 50 Mg Tablet, 50 MG PO QAM, TAB 01/20/18 Discontinued Scripts Simethicone (GAS-X ULTRA STRENGTH) 180 Mg Capsule, 180 MG PO TID, #20 CAP Prov:GORDON JONES MD 07/27/18 Amoxicillin/Potassium Clav (Amox-Clav 875-125 mg Tablet) 875-125 mg Tab, 1 TAB PO BID for 3 Days, #6 TAB Prov:MASHA ORITZ MD 01/24/18 Allergies: Coded Allergies: No Known Allergy (Unverified , 08/03/18) Past Surgical History Past Surgical Hx: other Social History Smoking Status: Never smoker Exam/Review of Systems Exam Vitals Vital Signs Date Temp Pulse Resp B/P (MAP) Pulse Ox O2 O2 Flow FiO2 Time Delivery Rate 08/03/18 108 26 146/102 96 14:20 (117) 08/03/18 99.9 12:38 Exam PHYSICAL EXAMINATION: GENERAL: Well developed, well nourished, alert & oriented x 3,Jaundice SKIN: Scars HEAD: Normocephalic, atraumatic, no tenderness. EYES: Pupils equal reactive to light, icteric, no discharge. EARS/NOSE AND THROAT: Ears normal, nose normal NECK: Supple, no masses, CHEST: Inspection within normal limits. CARDIOVASCULAR: Heart: Regular rate and rhythm, no murmurs, gallops or rubs. Peripheral pulses present within normal limits, no cyanosis, clubbing or edemas. No pulsatile abdominal mass RESPIRATORY: Lungs clear to auscultation and percussion, no wheezing, no rubs GASTROINTESTINAL AND LIVER: Abdomen: Soft, RUQ tenderness, non-distended, no hernias, no masses, no organomegaly, no ascites, no guarding, no rebound tenderness, normoactive bowel sounds. Rectal: Deferred. GENITOURINARY: Male genitalia within normal limits. EXTREMITIES: No cyanosis, clubbing or edema. Results Result Diagram: 08/03/18 1345 08/03/18 1345 Results 24hrs Laboratory Tests Test 08/03/18 13:45 White Blood Count 7.0 Red Blood Count 5.04 Hemoglobin 15.8 Hematocrit 46.5 Mean Corpuscular Volume 92.3 Mean Corpuscular Hemoglobin 31.3 Mean Corpuscular Hemoglobin Concent 34.0 Red Cell Distribution Width 13.5 Platelet Count 146 # Mean Platelet Volume 11.2 H Immature Granulocytes % 0.600 H Neutrophils % 82.1 H Lymphocytes % 12.1 L Monocytes % 4.5 Eosinophils % 0.1 Basophils % 0.6 Nucleated Red Blood Cells % 0.0 Immature Granulocytes # 0.040 H Neutrophils # 5.8 Lymphocytes # 0.9 Monocytes # 0.3 Eosinophils # 0.0 Basophils # 0.0 Nucleated Red Blood Cells # 0.0 Prothrombin Time 12.4 Prothrombin Time Ratio 1.0 INR International Normalized Ratio 0.91 Activated Partial Thromboplast Time 33.6 Urine Color DARY Urine Clarity CLEAR Urine pH 5.0 Urine Specific [place] 1.024 Urine Ketones 1+ H Urine Nitrite NEGATIVE Urine Bilirubin 2+ H Urine Urobilinogen 2+ H Urine Leukocyte Esterase NEGATIVE Urine Microscopic RBC 1 Urine Microscopic WBC 2 Urine Mucus FEW A Urine Hemoglobin 1+ H Urine Glucose 2+ H Urine Total Protein NEGATIVE Sodium Level 144 Potassium Level 3.6 Chloride Level 104 Carbon Dioxide Level 25 Anion Gap 15 H Blood Urea Nitrogen 11 Creatinine 1.15 Est Glomerular Filtrat Rate mL/min > 60 Glucose Level 163 Calcium Level 10.0 Total Bilirubin 4.7 H Direct Bilirubin 3.00 H Indirect Bilirubin 1.7 H Aspartate Amino Transf (AST/SGOT) 387 H Alanine Aminotransferase (ALT/SGPT) 994 H Alkaline Phosphatase 225 H Total Protein 8.4 H Albumin 4.9 Globulin 3.50 H Albumin/Globulin Ratio 1.40 Lipase 187 KONG DOMÍNGUEZ August 03, 2018 15:42
[2018-08-03] MEDS ORDERED: NACL 0.9% 3 ML SYG IV SCH (17:00)
[2018-08-03] MEDS ORDERED: clonAZEPAM 0.5 MG TAB PO PRN (17:00)
--- NOTE | 2018-08-03 17:04 | HP ---
Date/Time of Note Date/Time of Note DATE: 08/03/18 TIME: 16:53 Assessment/Plan VTE Prophylaxis SCD applied (from Nsg): Yes Pharmacological prophylaxis: NA/contraindicated Pharm contraindication: low risk/ambulating Lines/Catheters IV Catheter Type (from Nrs): Saline Lock Assessment/Plan Assessment/Plan 53 yo man history of mood disorder presents with obstructive jaundice #Obstructive jaundice - CBD dilated, elevated AST/ALT and bilirubin - Patient is s/p cholecystectomy so unusual to have true choledocholithiasis - No signs of sepsis. Will hold off on antibiotics for now but watch carefully. - GI consulted. Plan for ERCP tomorrow. Clear liquids tonight,NPO after midnight. - Lipase negative, no pancreatitis. #Mood disorder - Continue home benzos and quetiapine. DVT: SCDs GI: PPI Result Diagram: 08/03/18 1345 08/03/18 1345 HPI/ROS Admit Date/Time Admit Date/Time 03 Aug 2018 Hx of Present Illness Mr. Mills is a 53 yo man with history of mood disorder who presents with abdominal discomfort and jaundice. He was in his usual state of health until July 20 when he ate a very rich meal at a [employer] with lots of raw seafood, which he doesn't normally eat. Since then (about 2 weeks [employer]) he's had epigastric burning pain radiating to the back and bloating, lots of belching and flatulence. Symptoms worsen with any food. On July 27 he presented to the ED with these symptoms and was given GI cocktail and discharged with simethicone. This incompletely treated pain. Today, on the day of admission he noticed his skin was bright yellow and so returned to the ED. In the ED he was afebrile, tachy to 110s, BP 167/113. Labs notable for AST/ALT 380/990, alk phos 220, and total bili 4.7. CT showed linear hyperdensity obstructing the distal CBD which was dilated to 7mm. ROS Denies recent fever, chills, night sweats, weight loss, anorexia, dysphagia, odynophagia, sore throat, cough, dyspnea, chest pressure/palpitations, nausea, vomiting, diarrhea, constipation, dysuria, hematuria. PMH/Family/Social Past Medical History Mood disorder Medications Current Medications Indomethacin (Indocin Supp) 100 mg ONCE ONCE SC ; Start 08/04/18 at 16:30; Stop 08/04/18 at 16:31 Coded Allergies: No Known Allergy (Unverified , 08/03/18) Past Surgical History Cholecystectomy 01/2018 Skin tag removal on back Vasectomy Past Surgical Hx: other Family History Significant Family History: no pertinent family hx Social History Alcohol Use: none Smoking Status: Never smoker Drug Use: none Exam/Review of Systems Vital Signs Vitals Vital Signs Date Temp Pulse Resp B/P (MAP) Pulse Ox O2 O2 Flow FiO2 Time Delivery Rate 08/03/18 97 19 121/105 98 16:37 (110) 08/03/18 99.9 12:38 Exam Exam Gen: Obese man well appearing lying in gurney, grossly jaundiced. Eyes: PERRL. Icteric. HEENT: Moist mucous membranes, clear oropharynx. Neck: No lymphadenopathy, supple. Card: Regular rate and rhyhtm, no murmurs Pulm: Clear to auscultation bilaterally Abd: Soft, nondistended, nontympanic. Hypoactive bowel sounds. Very tender to palpation epigastric and LEFT upper quadrant. No rebound tenderness. Ext: No cyanosis/clubbing/edema Skin: warm, dry, jaundiced. BESSY SENIOR MD August 03, 2018 17:03
[2018-08-03] MEDS: ONDANSETRON 4 MG INJ IV PRN ×2 (17:15→20:21)
[2018-08-03] MEDS: FAMOTIDINE 20 MG INJ IV SCH (17:15)
[2018-08-03] MEDS: SOD CHLORIDE 0.45% 1,000 ML IV SCH (17:19)
[2018-08-03] MEDS ORDERED: morphine 4 MG/ML VIAL IV STA (20:14)
[2018-08-03] MEDS ORDERED: QUETIAPINE FUMARATE 150 MG PO SCH (21:00)
[2018-08-03 21:15] VITALS: BP 178/106; PULSE 86; RESP 18
[2018-08-03] MEDS: QUETIAPINE 100 MG TAB PO SCH (23:30)
[2018-08-03] MEDS: clonAZEPAM 0.5 MG TAB PO SCH (23:30)
[2018-08-04] VITALS (19 sets, daily range): BP systolic 120–172; BP diastolic 76–107; PULSE 79–118; RESP 16–23
[2018-08-04] MEDS ORDERED: hydrALAzine 20 MG INJ IV PRN ×2 (00:30→18:30)
[2018-08-04] MEDS: HYDROmorphONE 1 MG/ML SYG IV PRN ×3 (00:44→12:10)
[2018-08-04] MEDS: SOD CHLORIDE 0.45% 1,000 ML IV SCH ×2 (06:09→07:47)
[2018-08-04] MEDS ORDERED: CEFAZOLIN 1 GM INJ ONE (07:00)
[2018-08-04] MEDS ORDERED: SEVOFLURANE 15 MIN ONE (07:00)
[2018-08-04] MEDS: FAMOTIDINE 20 MG INJ IV SCH (08:44)
[2018-08-04] MEDS ORDERED: clonAZEPAM 0.5 MG TAB PO SCH (09:00)
[2018-08-04] MEDS: clonAZEPAM 0.5 MG TAB PO SCH ×2 (09:02→21:00)
[2018-08-04] MEDS: QUETIAPINE 25 MG TAB PO SCH (12:02)
--- NOTE | 2018-08-04 13:38 | PN ---
Date/Time of Note Date/Time of Note DATE: 08/04/18 TIME: 13:34 Assessment/Plan VTE Prophylaxis Risk score (from Ns)>0 risk: 0 SCD applied (from Ns): Yes Pharmacological prophylaxis: NA/contraindicated Pharm contraindication: low risk/ambulating Lines/Catheters IV Catheter Type (from Nrs): Peripheral IV Assessment/Plan Assessment/Plan 53 yo man history of mood disorder presents with obstructive jaundice #Obstructive jaundice #Abdominal pain - CBD dilated, elevated AST/ALT and bilirubin - Patient is s/p cholecystectomy so unusual to have true choledocholithiasis - No signs of sepsis. Will hold off on antibiotics for now but watch carefully. - GI consulted. Plan for ERCP tonight (busy schedule). - Lipase negative, no pancreatitis. #Mood disorder - Continue home benzos and quetiapine. DVT: SCDs GI: PPI Result Diagram: 08/04/1845308/04/18453 Subjective 24 Hr Interval Summary Free Text/Dictation No acute overnight events. Patient tolerated clear liquid diet last night. Today still has burning epigastric pain. Sleeping comfortably, easily arousable. Exam/Review of Systems Exam Vitals Vital Signs Date Temp Pulse Resp B/P (MAP) Pulse Ox O2 O2 Flow FiO2 Time Delivery Rate 08/04/18 98.5 103 20 141/89 93 07:45 (106) 08/03/18 Room Air 21:01 Intake and Output 08/03/18 08/03/18 08/04/18 1515:00 23:00 07:00 IntakeIntake Total 900 ml BalanceBalance 900 ml Exam Gen: Obese man well appearing lying in bed. Eyes: PERRL. Icteric. HEENT: Moist mucous membranes, clear oropharynx. Neck: No lymphadenopathy, supple. Card: Regular rate and rhythm, no murmurs Pulm: Clear to auscultation bilaterally Abd: Soft, nondistended, nontympanic. Hypoactive bowel sounds. Mildly tender to the epigastrium. No rebound tenderness. Ext: No cyanosis/clubbing/edema Skin: warm, dry, jaundiced. Results Results 24hrs Laboratory Tests Test 08/03/18 13:45 08/04/18 04:54 White Blood Count 7.0 11.7 #H Red Blood Count 5.04 4.96 Hemoglobin 15.8 15.6 Hematocrit 46.5 45.4 Mean Corpuscular Volume 92.3 91.5 Mean Corpuscular Hemoglobin 31.3 31.5 Mean Corpuscular Hemoglobin Concent 34.0 34.4 Red Cell Distribution Width 13.5 13.6 Platelet Count 146 # 151 Mean Platelet Volume 11.2 H 11.3 H Immature Granulocytes % 0.600 H 0.400 Neutrophils % 82.1 H 88.4 H Lymphocytes % 12.1 L 6.6 L Monocytes % 4.5 4.3 Eosinophils % 0.1 0.0 Basophils % 0.6 0.3 Nucleated Red Blood Cells % 0.0 0.0 Immature Granulocytes # 0.040 H 0.050 H Neutrophils # 5.8 10.4 H Lymphocytes # 0.9 0.8 Monocytes # 0.3 0.5 Eosinophils # 0.0 0.0 Basophils # 0.0 0.0 Nucleated Red Blood Cells # 0.0 0.0 Prothrombin Time 12.4 Prothrombin Time Ratio 1.0 INR International Normalized Ratio 0.91 Activated Partial Thromboplast Time 33.6 Urine Color DARY Urine Clarity CLEAR Urine pH 5.0 Urine Specific [place] 1.024 Urine Ketones 1+ H Urine Nitrite NEGATIVE Urine Bilirubin 2+ H Urine Urobilinogen 2+ H Urine Leukocyte Esterase NEGATIVE Urine Microscopic RBC 1 Urine Microscopic WBC 2 Urine Mucus FEW A Urine Hemoglobin 1+ H Urine Glucose 2+ H Urine Total Protein NEGATIVE Sodium Level 144 142 Potassium Level 3.6 3.8 Chloride Level 104 106 Carbon Dioxide Level 25 25 Anion Gap 15 H 11 Blood Urea Nitrogen 11 10 Creatinine 1.15 1.06 Est Glomerular Filtrat Rate mL/min > 60 > 60 Glucose Level 163 147 Calcium Level 10.0 9.9 Total Bilirubin 4.7 H 4.6 H Direct Bilirubin 3.00 H 3.30 H Indirect Bilirubin 1.7 H 1.3 H Aspartate Amino Transf (AST/SGOT) 387 H 244 H Alanine Aminotransferase (ALT/SGPT) 994 H 801 H Alkaline Phosphatase 225 H 234 H Total Protein 8.4 H 8.0 Albumin 4.9 4.6 Globulin 3.50 H 3.40 H Albumin/Globulin Ratio 1.40 1.35 Lipase 187 Hepatitis A IgM Antibody NON-REACTIVE Hepatitis B Surface Antigen NEGATIVE Hepatitis C Antibody NEGATIVE Hemoglobin A1c 5.5 Phosphorus Level 3.6 Magnesium Level 2.1 Thyroid Stimulating Hormone (TSH) 0.623 Medications Medication Current Medications Indomethacin (Indocin Supp) 100 mg ONCE ONCE AR ; Start 08/04/18 at 16:30; Stop 08/04/18 at 16:31 Sodium Chloride 1,000 ml @ 75 mls/hr [id number] IV Last administered on 08/04/18at 07:47; Admin Dose 75 MLS/HR; Start 08/03/18 at 16:49 IV Flush (NS 3 ml) 3 ml PER PROTOCOL IV ; Start 08/03/18 at 17:00 Ondansetron HCl (Zofran Inj) 4 mg Q6H PRN IV NAUSEA/VOMITING Last administered on 08/03/18 20:21; Admin Dose 4 MG; Start 08/03/18 at 17:00 Famotidine (Pepcid Iv) 20 mg DAILY IV Last administered on 08/04/18 08:44; Admin Dose 20 MG; Start 08/03/18 at 17:30 Quetiapine Fumarate (Seroquel) 50 mg QAM PO Last administered on 08/04/18 12:02; Admin Dose 50 MG; Start 08/04/18 at 09:00 Clonazepam (Klonopin) 1 mg MORNING AND BEDTIME PO Last administered on 08/04/18 09:02; Admin Dose 1 MG; Start 08/03/18 at 23:30 Quetiapine Fumarate (Seroquel) 150 mg HS PO ; Start 08/03/18 at 23:30 Hydromorphone HCl (Dilaudid) 1 mg Q4H PRN IV SEVERE PAIN LEVEL 7-10 Last admini stered on 08/04/18at 12:10; Admin Dose 1 MG; Start 08/04/18 at 00:30 Hydralazine HCl (Apresoline) 10 mg Q4H PRN IV ELEVATED BLOOD PRESSURE Last administered on 08/04/18 03:01; Admin Dose 10 MG; Start 08/04/18 at 00:30 BESSY SENIOR MD August 04, 2018 13:38
[2018-08-04] MEDS ORDERED: INDOMETHACIN 50 MG SUPP PR ONE (16:30)
--- NOTE | 2018-08-04 17:32 | PREAC ---
Date/Time of Note Date/Time of Note DATE: 08/04/18 TIME: 17:31 Anesthesia Eval and Record Evaluation Time Pre-Procedure Interview DATE: 08/04/18 TIME: 17:31 Age 53 Sex male NPO: 8 hrs Preoperative diagnosis CBD OBSTRUCTION Planned procedure ERCP Past Medical History Past Medical History: Includes Psych: Other (MOOD DISORDER) Surgery & Anesthesia Issues No known issue Meds Anticoagulation: No Beta Arturo within 24 hr: No Reason Beta Arturo not given: Pt. not on B-Arturo Reported Medications Clonazepam* (Clonazepam*) 1 Mg Tablet, 1 MG PO BID PRN for ANXIETY, TAB 01/20/18 Quetiapine Fumarate* (Seroquel* XR) 150 Mg Tab.sr.24h, 150 MG PO QPM, #30 TAB 01/20/18 Quetiapine Fumarate* (Seroquel*) 50 Mg Tablet, 50 MG PO QAM, TAB 01/20/18 Discontinued Scripts Simethicone (GAS-X ULTRA STRENGTH) 180 Mg Capsule, 180 MG PO TID, #20 CAP Prov:GORDON JONES MD 07/27/18 Amoxicillin/Potassium Clav (Amox-Clav 875-125 mg Tablet) 875-125 mg Tab, 1 TAB PO BID for 3 Days, #6 TAB Prov:MASHA ORTIZ MD 01/24/18 Current Medications Sodium Chloride 1,000 ml @ 75 mls/hr [id number] IV Last administered on 08/04/18at 07:47; Admin Dose 75 MLS/HR; Start 08/03/18 at 16:49 IV Flush (NS 3 ml) 3 ml PER PROTOCOL IV ; Start 08/03/18 at 17:00 Ondansetron HCl (Zofran Inj) 4 mg Q6H PRN IV NAUSEA/VOMITING Last administered on 08/03/18at 20:21; Admin Dose 4 MG; Start 08/03/18 at 17:00 Famotidine (Pepcid Iv) 20 mg DAILY IV Last administered on 08/04/18at 08:44; Admin Dose 20 MG; Start 08/03/18 at 17:30 Quetiapine Fumarate (Seroquel) 50 mg QAM PO Last administered on 08/04/18at 12:02; Admin Dose 50 MG; Start 08/04/18 at 09:00 Clonazepam (Klonopin) 1 mg MORNING AND BEDTIME PO Last administered on 08/04/18at 09:02; Admin Dose 1 MG; Start 08/03/18 at 23:30 Quetiapine Fumarate (Seroquel) 150 mg HS PO ; Start 08/03/18 at 23:30 Hydromorphone HCl (Dilaudid) 1 mg Q4H PRN IV SEVERE PAIN LEVEL 7-10 Last administered on 08/04/18at 12:10; Admin Dose 1 MG; Start 08/04/18 at 00:30 Hydralazine HCl (Apresoline) 10 mg Q4H PRN IV ELEVATED BLOOD PRESSURE Last administered on 08/04/18at 03:01; Admin Dose 10 MG; Start 08/04/18 at 00:30 Meds reviewed: Yes Allergies Coded Allergies: No Known Allergy (Unverified , 08/03/18) Allergies Reviewed: Yes Labs/Studies Labs Reviewed: Reviewed by anesthesiologist Result Diagram: 08/04/18 0454 08/04/18 0454 Laboratory Tests 08/04/18 04:54 test: N/A Pre-procedure Exam Last vitals Vital Signs Date Temp Pulse Resp B/P (MAP) Pulse Ox O2 O2 Flow FiO2 Time Delivery Rate 08/04/18 98.6 118 20 133/84 96 14:17 (100) 08/03/18 Room Air 21:01 Airway: Adequate mouth opening, Adequate thyromental dist Mallampati: Mallampati II Teeth: Normal Lung: Normal Heart: Normal ASA Physical Status ASA physical status: 2 Emergency: None Planned Anesthetic General/MAC: ETT Planned Pain Management Parenteral pain med Pre-operative Attestations Prior to commencing anesthesia and surgery, the patient was re-evaluated, there was verification of: *The patient's identity *The results of appropriate recent lab work and preoperative vital signs *The above evaluation not changing prior to induction *Anesthetic plan, risk benefits, alternative and complications discussed with patient/family; questions answered; patient/family understands, accepts and wishes to proceed. AMANDA ANDINO August 04, 2018 17:32
[2018-08-04] MEDS ORDERED: PROPOFOL 20 ML ONE (17:35)
[2018-08-04] MEDS ORDERED: FENTAnyl 50 MCG/ML VIAL ONE (17:36)
[2018-08-04] MEDS ORDERED: LIDOCAINE 2% (SDV) 5 ML INJ ONE (17:36)
[2018-08-04] MEDS ORDERED: ROCURONIUM 50 MG INJ ONE (17:36)
[2018-08-04] MEDS ORDERED: KETOROLAC 30 MG INJ ONE (17:48)
[2018-08-04] MEDS ORDERED: NEOSTIGMINE 3 MG/3 ML SYRINGE ONE (18:14)
[2018-08-04] MEDS ORDERED: GLYCOPYRROLATE 0.4 MG INJ ONE (18:14)
--- NOTE | 2018-08-04 18:27 | PAC ---
Date/Time of Note Date/Time of Note DATE: 08/04/18 TIME: 18:27 Post-Anesthesia Notes Post-Anesthesia Note Last documented vital signs Vital Signs Date Temp Pulse Resp B/P (MAP) Pulse Ox O2 O2 Flow FiO2 Time Delivery Rate 08/04/18 98.6 118 20 133/84 96 18:17 (100) 08/03/18 Room Air 21:01 Activity: WNL Respiratory function: WNL Cardiovascular function: WNL Mental status: Baseline Pain reasonably controlled: Yes Hydration appropriate: Yes Nausea/Vomiting absent: Yes AMANDA ANDINO August 04, 2018 18:27
--- NOTE | 2018-08-04 18:28 | HPN ---
Date/Time of Note Date/Time of Note DATE: 08/04/18 TIME: 17:27 Interval H&P Admission Note Pt. seen H&P reviewed: No system changes CHASTITY ANDERSON MD August 04, 2018 18:28
[2018-08-04] MEDS ORDERED: FENTAnyl 50 MCG/ML VIAL IV PRN ×2 (18:30)
[2018-08-04] MEDS ORDERED: ONDANSETRON 4 MG INJ IV PRN (18:30)
[2018-08-04] MEDS ORDERED: EPHEDrine 25 MG/5 ML SYG IV PRN (18:30)
[2018-08-04] MEDS ORDERED: LABETALOL HCL 20MG INJ IV PRN (18:30)
--- NOTE | 2018-08-04 18:34 | OPPN ---
Date/Time of Note Date/Time of Note DATE: 08/04/18 TIME: 18:29 Proc Note GI Procedure Date 08/04/18 Indication: diagnostic, treatment Pre-procedure Diagnosis Obstructive jaundice Rule out choledocholithiasis Post-procedure Diagnosis Impression: Impacted CBD stone. Post precut sphincterotomy with stone removal. Post standard completion sphincterotomy. Post balloon sweeping the common bile duct. Plan: Close observation. Advance diet as tolerated. Monitor liver function test. . Procedure Performed: ERCP (Plus sphincterotomy plus stone removal) Surgeon CHASTITY ANDERSON MD See signature line [employer] Manager none Anesthesia Type: general Anesthesiologist: AMANDA ANDINO Tourniquet Time none EBL none Transfusion required none Biopsy 1: None Grafts/Implants none Tubes/Drains none Complication(s) none Disposition: PACU Procedure Description After informed consent, with the patient/relatives understanding the procedure, its indications, potential risks and complications, including but not limited to: allergic reaction, bleeding, perforation or infection, and after all pertinent questions were answered to the patients satisfaction, the patient/relatives signed witnessed informed consent. Following this, premedication was administered slowly IV push under careful cardiovascular and respiratory monitoring with pulse oximetry, automatic blood pressure, and phototypesetting equipment monitor. Once the sedative effect was achieved the patient was place in the prone position in the radiology special procedures suite; the side viewing panendoscope was introduced and advanced under visual control. Careful examination of the upper gastrointestinal tract, both on insertion as well as withdrawal of the instrument disclosed the following findings: Esophagus: The mucosa of the entire appears within normal limits. There is no evidence of esophagitis, varices, neoplasm or stricture. No Hiatal Hernia identified. Stomach: Upon entrance to the stomach air was insufflated, the gastric eugene distended normally, the mucosa of the fundus, body and antrum of the stomach was carefully examined both head-on and on retroflexion, and shows no abnormalities. There is no evidence of gastritis, ulcers, or neoplasm. Pylorus: The pylorus appears patent and within normal limits, with no evidence of gastric outlet obstruction. Duodenum: The duodenal mucosa was carefully examined in the duodenal bulb as well as the second portion of the duodenum and appears unremarkable with no evidence of duodenitis, ulcer or neoplasm. Ampulla of vater: The ampulla of Vater was identified it appears prominent and bulging with suggestion of impacted CBD stone. Cannulation: At this point cannulation was attempted. We were able to cannulate the pancreatic duct. Repeat attempted selective cannulation of the common bile duct were met with resistance and at this point we proceeded to perform precut access sphincterotomy. As we proceeded stone fragments were noted and the stone was clearly evident we extended the sphincterotomy until the stone was accessible and removed. Pancreatogram: Limited visualization normal appearance. Cholangiogram: Moderately dilated biliary tree with stone impacted in the distal common bile duct. Post precut axis sphincterotomy with stone removal. Standard completion sphincterotomy was performed with excellent bile flow. Balloon sweep with 9 to 12 mm balloon resulted no further stones and no additional abnormalities. Emptying is brisk. The instrument was then withdrawn the patient tolerated the procedure well and was transfer out of the endoscopy suite awake, and in good condition to continue to recover under observation. Copies To: CC: ; CHASTITY ANDERSON MD August 04, 2018 18:34
[2018-08-04] MEDS ORDERED: QUETIAPINE 100 MG TAB PO SCH (21:00)
[2018-08-04] MEDS: QUETIAPINE 100 MG TAB PO SCH (21:00)
[2018-08-05] MEDS: SOD CHLORIDE 0.45% 1,000 ML IV SCH ×2 (00:49→08:49)
[2018-08-05] MEDS: HYDROmorphONE 1 MG/ML SYG IV PRN ×2 (01:06→10:55)
[2018-08-05 02:00] VITALS: BP 123/70; PULSE 90; RESP 18
[2018-08-05 08:12] VITALS: BP 132/85; PULSE 78; RESP 18
[2018-08-05] MEDS: clonAZEPAM 0.5 MG TAB PO SCH (09:31)
[2018-08-05] MEDS: QUETIAPINE 25 MG TAB PO SCH (09:31)
[2018-08-05] MEDS: FAMOTIDINE 20 MG INJ IV SCH (09:31)
--- NOTE | 2018-08-05 12:07 | PN ---
Date/Time of Note Date/Time of Note DATE: 08/05/18 TIME: 12:05 Assessment/Plan VTE Prophylaxis Risk score (from Nsg)>0 risk: 2 SCD applied (from Nsg): Yes Pharmacological prophylaxis: other (scds) Lines/Catheters IV Catheter Type (from Nrs): Peripheral IV Assessment/Plan Hospital Course Summary Assessment and Plan: Assessment: Elevated LFTs with Direct hyperbilirubinemia- improving -Likely 2/2 to choledocholithiasis -CT abb/pelvis - Thin hyperdensity at the distal common bile duct may represent tiny layering common bile duct stones versus postsurgical changes ERCP 08/04/18 Impacted CBD stone. Post precut sphincterotomy with stone removal. Post standard completion sphincterotomy. Post balloon sweeping the common bile duct. History of laparoscopic subtotal cholecystectomy- 2017 Depression/Anxiety Plan: Advance diet as tolerated Monitor LFTs D/c planning per hospitalist Patient seen in collaboration with Dr. Quijano Subjective: Course reviewed with nursing staff Patient interviewed and examined All labs, imaging and other results reviewed The patient resting in bed, discussed results of ERCP. Pt c/o some abd pain- completely relieved with pain medication. Encourage ambulation, and sitting up in chair for all meals No c/o n/v with advancement in diet PHYSICAL EXAMINATION: GENERAL: Well developed, well nourished, alert & oriented x 3,Jaundice- improved SKIN: Scars HEAD: Normocephalic, atraumatic, no tenderness. EYES: Pupils equal reactive to light, icteric, no discharge. EARS/NOSE AND THROAT: Ears normal, nose normal NECK: Supple, no masses, CHEST: Inspection within normal limits. CARDIOVASCULAR: Heart: Regular rate and rhythm RESPIRATORY: Lungs clear to auscultation GASTROINTESTINAL AND LIVER: Abdomen: Soft, RUQ tenderness, non-distended, no h ernias, no masses, no organomegaly, no ascites, no guarding, no rebound tenderness, normoactive bowel sounds. Rectal: Deferred. GENITOURINARY: Male genitalia within normal limits. EXTREMITIES: No cyanosis, clubbing or edema. Result Diagram: 08/04/18 0454 08/04/18 0454 Results 24hrs Laboratory Tests Test 08/05/18 05:03 Total Bilirubin 3.7 H Direct Bilirubin 2.00 #H Indirect Bilirubin 1.7 H Aspartate Amino Transf (AST/SGOT) 144 H Alanine Aminotransferase (ALT/SGPT) 507 H Alkaline Phosphatase 240 H Total Protein 7.4 Albumin 3.9 Exam/Review of Systems Exam Vitals Vital Signs Date Temp Pulse Resp B/P (MAP) Pulse Ox O2 O2 Flow FiO2 Time Delivery Rate 08/05/18 98.6 78 18 132/85 92 Room Air 08:12 (101) 08/05/18 2.0 02:00 Intake and Output 08/04/18 08/04/18 08/05/18 1515:00 23:00 07:00 IntakeIntake Total 150 ml 675 ml 625 ml BalanceBalance 150 ml 675 ml 625 ml Results Results 24hrs Laboratory Tests Test 08/05/18 05:03 Total Bilirubin 3.7 H Direct Bilirubin 2.00 #H Indirect Bilirubin 1.7 H Aspartate Amino Transf (AST/SGOT) 144 H Alanine Aminotransferase (ALT/SGPT) 507 H Alkaline Phosphatase 240 H Total Protein 7.4 Albumin 3.9 Medications Medication Current Medications IV Flush (NS 3 ml) 3 ml PER PROTOCOL IV ; Start 08/03/18 at 17:00 Ondansetron HCl (Zofran Inj) 4 mg Q6H PRN IV NAUSEA/VOMITING Last administered on 08/03/18 20:21; Admin Dose 4 MG; Start 08/03/18 at 17:00 Famotidine (Pepcid Iv) 20 mg DAILY IV Last administered on 08/05/18 09:31; Admin Dose 20 MG; Start 08/03/18 at 17:30 Quetiapine Fumarate (Seroquel) 50 mg QAM PO Last administered on 08/05/18 09:31; Admin Dose 50 MG; Start 08/04/18 at 09:00 Clonazepam (Klonopin) 1 mg MORNING AND BEDTIME PO Last administered on 08/05/18 09:31; Admin Dose 1 MG; Start 08/03/18 at 23:30 Quetiapine Fumarate (Seroquel) 150 mg HS PO Last administered on 08/04/18 21:00; Admin Dose 150 MG; Start 08/03/18 at 23:30 Hydromorphone HCl (Dilaudid) 1 mg Q4H PRN IV SEVERE PAIN LEVEL 7-10 Last administered on 08/05/18at 10:55; Admin Dose 1 MG; Start 08/04/18 at 00:30; Status Hold Hydralazine HCl (Apresoline) 10 mg Q4H PRN IV ELEVATED BLOOD PRESSURE Last administered on 08/04/18at 03:01; Admin Dose 10 MG; Start 08/04/18 at 00:30 Simethicone (Mylicon) 80 mg Q6 PO ; Start 08/05/18 at 12:00 KONG DOMÍNGUEZ August 05, 2018 12:07
[2018-08-05 15:23] VITALS: BP 131/84; PULSE 96; RESP 17
[2018-08-05] MEDS ORDERED: ACETAMINOPHEN 325 MG TAB PO PRN (16:00)
--- NOTE | 2018-08-05 16:20 | PDOCDIS ---
Discharge Instructions DIAGNOSIS Discharge Diagnosis Obstructive jaundice CONDITION [id number] Patient Condition: [id number] Good HOME CARE INSTRUCTIONS: [id number] Diet Instructions: [id number] Regular ACTIVITY: [id number] Activity Restrictions: [id number] No Restrictions FOLLOW UP/APPOINTMENTS Follow-up Plan 1. No strict dietary restrictions, but for the next few days avoid very heavy meals. 2. For post-procedure pain take haqx-hir-vderulg tylenol 650mg every 6 hours or ibuprofen 800mg every 6 hours. 3. For bloating gas pain, you can take awxu-mta-[id number] simethicone (called gas- X or generic gas relief) 125mg every 4 hours as needed. BESSY SENIOR MD August 05, 2018 16:20
--- NOTE | 2018-08-05 17:15 | DS ---
Date/Time of Note Date/Time of Note DATE: 08/05/18 TIME: 17:10 Discharge Summary Admission/Discharge Info Admit Date/Time August 03, 2018 at 15:55 Discharge Date/Time August 05, 2018 Discharge Diagnosis Obstructive jaundice Patient Condition: Good Consults Dr. Quijano, gastroenterology Procedures 08/04/18: ERCP with sphincterotomy Hx of Present Illness Mr. Mills is a 53 yo man with history of mood disorder who presents with abdominal discomfort and jaundice. He was in his usual state of health until July 20 when he ate a very rich meal at a [employer] with lots of raw seafood, which he doesn't normally eat. Since then (about 2 weeks [employer]) he's had epigastric burning pain radiating to the back and bloating, lots of belching and flatulence. Symptoms worsen with any food. On July 27 he presented to the ED with these symptoms and was given GI cocktail and discharged with simethicone. This incompletely treated pain. Today, on the day of admission he noticed his skin was bright yellow and so returned to the ED. In the ED he was afebrile, tachy to 110s, BP 167/113. Labs notable for AST/ALT 380/990, alk phos 220, and total bili 4.7. CT showed linear hyperdensity obstructing the distal CBD which was dilated to 7mm. Hospital Course The patient was made NPO. Antibiotics were considered but the patient was very well appearing so these were not given. He was taken for ERCP by Dr. Quijano; found to have an obstructive stone and sphincterotomy was done to remove it. Post-procedure the patient was well appearing, tolerating diet, ambulating. Pain control with acetaminophen and ibuprofen. LFTs sharply downtrended right after the procedure. Home Meds Reported Medications Clonazepam* (Clonazepam*) 1 Mg Tablet, 1 MG PO BID PRN for ANXIETY, TAB 01/20/18 Quetiapine Fumarate* (Seroquel* XR) 150 Mg Tab.sr.24h, 150 MG PO QPM, #30 TAB 01/20/18 Quetiapine Fumarate* (Seroquel*) 50 Mg Tablet, 50 MG PO QAM, TAB 01/20/18 Discontinued Scripts Simethicone (GAS-X ULTRA STRENGTH) 180 Mg Capsule, 180 MG PO TID, #20 CAP Prov:GORDON JONES MD 07/27/18 Amoxicillin/Potassium Clav (Amox-Clav 875-125 mg Tablet) 875-125 mg Tab, 1 TAB PO BID for 3 Days, #6 TAB Prov:MASHA ORTIZ MD 01/24/18 Follow-up Plan 1. No strict dietary restrictions, but for the next few days avoid very heavy meals. 2. For post-procedure pain take fhyy-ijz-ttlesqs tylenol 650mg every 6 hours or ibuprofen 800mg every 6 hours. 3. For bloating gas pain, you can take tqvy-mqb-sygsktr simethicone (called gas- X or generic gas relief) 125mg every 4 hours as needed. Primary Care Provider Not On Staff Doctor Time spent on discharge: > 30 minutes Pending Labs Laboratory Tests Test 08/05/18 05:03 Total Bilirubin 3.7 mg/dl (0.2-1.3) Direct Bilirubin 2.00 mg/dl (0.00-0.20) Indirect Bilirubin 1.7 mg/dl (0-1.1) Aspartate Amino Transf (AST/SGOT) 144 IU/L (15-46) Alanine Aminotransferase (ALT/SGPT) 507 IU/L (13-69) Alkaline Phosphatase 240 IU/L (42-121) Total Protein 7.4 g/dl (6.1-8.1) Albumin 3.9 g/dl (3.3-4.9) BESSY SENIOR MD August 05, 2018 17:14
== END 2018-08-05 18:35 | disposition home or self-care (01) | DRG 446 ==
LOC: E/R 12:36 → 2NE 15:23 → INTOOBSV 15:55 → OBSVTOIN 15:55 → SUATTDRO 16:22 → 2NE 22:25 → OBSVTOIN 08-04 15:55 → UNDODISIN 08-05 18:35
PROVIDERS: ADMIT Internal Medicine; ATTEND Internal Medicine
PROC: 0FC98ZZ Extirpation of Matter from Common Bile Duct, Via Natural or Artificial Opening Endoscopic (ICD-10-PCS; principal; 2018-08-04 18:00)
DX: K80.51 Calculus of bile duct without cholangitis or cholecystitis with obstruction (principal); F41.9 Anxiety disorder, unspecified; F32.9 Major depressive disorder, single episode, unspecified; I10 Essential (primary) hypertension; E78.5 Hyperlipidemia, unspecified; F39 Unspecified mood [affective] disorder
CPT/HCPCS: 36415; 74176; 74330; 80053; 80076; 81001; 83036; 83690; 83735; 84100; 84443; 85025; 85610; 85730; 86709; 86803; 87340; 99217; G0378; J0360; J0690; J1170; J1885; J2270; J2405; J2710; J3010

== ENCOUNTER 2018-08-14 16:53 | Inpatient (IN) | payer OTHER ==
[~2018-08-14] VITALS: Ht 170.2 cm; Wt 89.5 kg
[~2018-08-14 16:53] MED LIST changes: -AMOX1TAB10 PO; -SIME180C4 PO
[2018-08-14] MEDS ORDERED: SOD CHLORIDE 0.9% 1,000 ML IV STA (17:03)
--- NOTE | 2018-08-14 18:29 | ERD ---
ER Documentation Chief Complaint Chief Complaint DIZZINESS SINCE THIS AM HPI Very pleasant 53-year-old gentleman who presents the emergency room with lightheadedness upon standing. Patient states that he was recently admitted for choledocholithiasis with sphincterotomy and stone retrieval. He is status post cholecystectomy. Patient does note that his stool has been black for approximately 24 hours. Every time he stands up he gets lightheaded and diaphoretic and feels like he might faint. He denies any history of ulcers, NS AID abuse or alcohol abuse. No hematemesis. Patient denies any belly pain or back pain. No jaundice. ROS All systems reviewed and are negative except as per history of present illness. Medications Home Meds Reported Medications Clonazepam* (Clonazepam*) 1 Mg Tablet, 1 MG PO BID PRN for ANXIETY, TAB 01/20/18 Quetiapine Fumarate* (Seroquel* XR) 150 Mg Tab.sr.24h, 150 MG PO QPM, #30 TAB 01/20/18 Quetiapine Fumarate* (Seroquel*) 50 Mg Tablet, 50 MG PO QAM, TAB 01/20/18 Allergies Allergies: Coded Allergies: No Known Allergy (Unverified , 08/03/18) PMhx/Soc History of Surgery: Yes (Cholestectomy, ) Anesthesia Reaction: No Hx Neurological Disorder: No Hx Respiratory Disorders: No Hx Cardiac Disorders: Yes (HTN ) Hx Psychiatric Problems: Yes (Anxiety- Depression, Schizophrenia) Hx Miscellaneous Medical Probl: Yes (High Cholesterol ) Hx Alcohol Use: No Hx Substance Use: No Hx Tobacco Use: No FmHx Family History: No diabetes Physical Exam Vitals Vital Signs Date Temp Pulse Resp B/P (MAP) Pulse Ox O2 O2 Flow FiO2 Time Delivery Rate 08/14/18 98.1 112 18 116/70 99 16:55 (85) Physical Exam General: Well developed, well nourished, no acute distress Head: Normocephalic, atraumatic. Eyes: Pupils equally reactive, EOM intact ENT: Moist mucous membranes Neck: Supple, no lymphadenopathy Respiratory: Lungs clear bilaterally, no distress Cardiovascular: RRR, no murmurs, rubs, or gallops Abdominal: Soft, non-tender, non-distended, no peritoneal signs : Deferred MSK: No edema, no unilateral swelling, 5/5 strength Neurologic: Alert and oriented, moving all extremities, normal speech, no focal weakness, no cerebellar signs Skin: No rash Psych: Normal mood Result Diagram: 08/14/18 1743 08/14/18 1743 Results 24 hrs Laboratory Tests Test 08/14/18 17:43 White Blood Count 10.1 10^3/ul Red Blood Count 3.51 10^6/ul Hemoglobin 11.1 g/dl Hematocrit 33.6 % Mean Corpuscular Volume 95.7 fl Mean Corpuscular Hemoglobin 31.6 pg Mean Corpuscular Hemoglobin Concent 33.0 g/dl Red Cell Distribution Width 13.1 % Platelet Count 407 10^3/UL Mean Platelet Volume 10.3 fl Immature Granulocytes % 1.000 % Neutrophils % 69.8 % Lymphocytes % 24.2 % Monocytes % 4.3 % Eosinophils % 0.1 % Basophils % 0.6 % Nucleated Red Blood Cells % 0.0 /100WBC Immature Granulocytes # 0.100 10^3/ul Neutrophils # 7.0 10^3/ul Lymphocytes # 2.4 10^3/ul Monocytes # 0.4 10^3/ul Eosinophils # 0.0 10^3/ul Basophils # 0.1 10^3/ul Nucleated Red Blood Cells # 0.0 10^3/ul Prothrombin Time 13.2 Sec Prothrombin Time Ratio 1.0 INR International Normalized Ratio 0.99 Activated Partial Thromboplast Time 29.7 Sec Sodium Level 138 mmol/L Potassium Level 4.6 mmol/L Chloride Level 105 mmol/L Carbon Dioxide Level 23 mmol/L Anion Gap 10 Blood Urea Nitrogen 48 mg/dl Creatinine 1.11 mg/dl Est Glomerular Filtrat Rate mL/min > 60 mL/min Glucose Level 173 mg/dl Calcium Level 8.8 mg/dl Troponin I < 0.012 ng/ml Current Medications Medications Dose Sig/Yenny Start Time Status Last (Trade) Ordered Route PRN Stop Time Admin Dose Reason Admin Sodium 1,000 ml @ Q1H STAT 08/14/18 DC 08/14/18 Chloride 1,000 mls/hr IV 17:03 18:18 08/14/18 18:02 40 mg ONCE ONCE 08/14/18 DC 08/14/18 Pantoprazole IV 18:30 18:46 (Protonix 08/14/18 18:31 Iv) Ondansetron 4 mg BRIDGE ORDER 08/14/18 HCl (Zofran PRN IV 19:30 Inj) NAUSEA/VOMITI 08/15/18 19:29 NG 650 mg ER BRIDGE 08/14/18 Acetaminophen PRN PO 19:30 (Tylenol .MILD PAIN 08/15/18 19:29 Tab) 1-3 OR TEMP Procedures/MDM EKG, MONITORS, & DIAGNOSTIC IMAGING: EKG: I reviewed and interpreted a 12-lead EKG. Rhythm: Normal sinus rhythm ST Changes: No contiguous ST segment elevations T waves: No contiguous T wave inversions Impression: [No evidence of acute cardiac ischemia] LAB INTERPRETATION: I reviewed the laboratory testing and it shows slightly low hemoglobin down from 15to 11, elevated BUN MEDICAL DECISION MAKING: The patient presents to the emergency room with melena, orthostasis and recent surgical procedure. Patient has no risk factors of upper GI bleed such as peptic ulcer disease, alcohol abuse or NSAID abuse. This is possibly related to the surgical procedure. No evidence of retroperitoneal hemorrhage at this point no indication for CT imaging of the abdomen and pelvis. No indication for blood transfusion but inpatient hospitalization for serial hemoglobins would be most appropriate. Patient given a dose of PPI. No indication for drip given no known history of peptic ulcer disease. Patient is hemodynamically stable. Jacquie-Blatchford Bleeding Score (GBS) from [email or web address] on 08/14/2018 All calculations should be rechecked by clinician prior to use RESULT SUMMARY: 9 points A GBS greater than zero suggests a High Risk GI bleed that is likely to require medical intervention: transfusion, endoscopy, or surgery. A higher GBS also correlated with a higher likelihood of needing intervention (scores ?6 are associated with >50% risk of needing intervention) INPUTS: Hemoglobin > 11.1 g/dL BUN > 48 mg/dL Initial systolic BP > 116 mm Hg Sex > 0 = Male Heart rate ?100 > 1 = Yes Melena present > 1 = Yes Recent syncope > 0 = No Hepatic disease history > 0 = No Cardiac failure present > 0 = No ER COURSE: * HD stable. Pending admit * PPI given CONSULTATION: [None] DISPOSITION PLAN: Med/Surgical admission for evaluation of GI bleed Accepting care team and consultations: I discussed the current laboratory data, diagnostic imaging and emergency care provided. Admitting team: Dr Acharya Admitting team indication: Insurance directed Departure Diagnosis: Primary Impression: Upper GI bleed Additional Impression: Orthostatic dizziness Condition: Stable BUDDY FINN MD August 14, 2018 18:29
[2018-08-14] MEDS ORDERED: PANTOPRAZOLE 40 MG INJ IV ONE (18:30)
[2018-08-14] MEDS ORDERED: morphine 2 MG INJ IV PRN (19:30)
[2018-08-14] MEDS ORDERED: MAGNESIUM HYDROXIDE 30ML CUP PO PRN (19:30)
[2018-08-14] MEDS ORDERED: DOCUSATE SODIUM 100 MG CAP PO PRN (19:30)
[2018-08-14] MEDS ORDERED: ALBUTEROL/IPRATROPIUM (NEB) 3 ML AMP HHN PRN (19:30)
[2018-08-14] MEDS ORDERED: hydrALAzine 20 MG INJ IV PRN (19:30)
[2018-08-14] MEDS ORDERED: LORAZEPAM 2 MG INJ IV PRN (19:30)
[2018-08-14] MEDS ORDERED: NACL 0.9% 3 ML SYG IV SCH (19:30)
[2018-08-14] MEDS ORDERED: HYDROCODONE/APAP (5/325) TAB PO PRN (19:30)
[2018-08-14] MEDS ORDERED: ACETAMINOPHEN 325 MG TAB PO PRN ×2 (19:30)
[2018-08-14] MEDS ORDERED: ONDANSETRON 4 MG INJ IV PRN ×2 (19:30)
[2018-08-14] MEDS ORDERED: NITROGLYCERIN (SL) 0.4 MG TAB SL PRN (19:30)
[2018-08-14] MEDS: SOD CHLORIDE 0.9% 1,000 ML IV SCH (20:37)
[2018-08-14 20:48] VITALS: BP 139/77; PULSE 94; RESP 17
[2018-08-14] MEDS ORDERED: clonAZEPAM 0.5 MG TAB PO ONE (22:30)
[2018-08-14] MEDS: QUETIAPINE 150 MG PO SCH (22:40)
--- NOTE | 2018-08-14 22:40 | HP ---
Date/Time of Note Date/Time of Note DATE: 08/14/18 TIME: 22:40 Assessment/Plan VTE Prophylaxis SCD applied (from Nsg): Yes Pharmacological prophylaxis: NA/contraindicated Pharm contraindication: bleeding Lines/Catheters IV Catheter Type (from Nrsg): Saline Lock Assessment/Plan Assessment/Plan 1. Upper GI bleed -PPI -GI consult -Monitor H&H closely and transfuse as needed 2. Anemia, secondary to blood loss -See #1 3. Recent obstructive jaundice: Status post ERCP with sphincterotomy 4. History of depression, schizophrenia and anxiety -Resume home meds Result Diagram: 08/14/18 1743 08/14/18 1743 Results 24hrs Laboratory Tests Test 08/14/18 17:39 08/14/18 17:43 Free Thyroxine 0.94 White Blood Count 10.1 Red Blood Count 3.51 #L Hemoglobin 11.1 #L Hematocrit 33.6 #L Mean Corpuscular Volume 95.7 Mean Corpuscular Hemoglobin 31.6 Mean Corpuscular Hemoglobin Concent 33.0 Red Cell Distribution Width 13.1 Platelet Count 407 # Mean Platelet Volume 10.3 Immature Granulocytes % 1.000 H Neutrophils % 69.8 Lymphocytes % 24.2 Monocytes % 4.3 Eosinophils % 0.1 Basophils % 0.6 Nucleated Red Blood Cells % 0.0 Immature Granulocytes # 0.100 H Neutrophils # 7.0 Lymphocytes # 2.4 Monocytes # 0.4 Eosinophils # 0.0 Basophils # 0.1 Nucleated Red Blood Cells # 0.0 Prothrombin Time 13.2 Prothrombin Time Ratio 1.0 INR International Normalized Ratio 0.99 Activated Partial Thromboplast Time 29.7 Sodium Level 138 Potassium Level 4.6 Chloride Level 105 Carbon Dioxide Level 23 Anion Gap 10 Blood Urea Nitrogen 48 H Creatinine 1.11 Est Glomerular Filtrat Rate mL/min > 60 Glucose Level 173 Calcium Level 8.8 Troponin I < 0.012 HPI/ROS Admit Date/Time Admit Date/Time August 14, 2018 at 19:12 Hx of Present Illness This is a 53-year-old male with a history of depression, schizophrenia/anxiety who presents the ER complaining of dizziness and dark stool. Patient was admitted here about 2 weeks ago for obstructive jaundice. He underwent ERCP with sphincterotomy. Patient now coming back complaining of dark stools and dizziness especially when he gets up from seated position. Denied hematemesis or BRBPR. When he was discharged from here about 10 days ago, his hemoglobin was 15 now at 11. PMH/Family/Social Past Medical History Medical History: other (see hpi) Medications Current Medications IV Flush (NS 3 ml) 3 ml PER PROTOCOL IV ; Start 08/14/18 at 19:30 Ondansetron HCl (Zofran Inj) 4 mg Q6H PRN IV NAUSEA/VOMITING; Start 08/14/18 at 19:30 Acetaminophen (Tylenol Tab) 650 mg Q6H PRN PO .PAIN 1-3 OR TEMP; Start 08/14/18 at 19:30 Acetaminophen/ Hydrocodone Bitart ([place] (5/325)) 1 tab Q6H PRN PO .MOD PAIN 4- 6; Start 08/14/18 at 19:30 Morphine Sulfate (morphine) 2 mg Q4H PRN IV .SEVERE PAIN 7-10; Start 08/14/18 at 19:30 Docusate Sodium (Colace) 100 mg Q12H PRN PO .CONSTIPATION; Start 08/14/18 at 19:30 Magnesium Hydroxide (Milk Of Mag) 30 ml DAILY PRN PO .CONSTIPATION; Start 08/14/18 at 19:30 Pantoprazole (Protonix Iv) 40 mg DAILY@06 IV ; Start 08/15/18 at 06:00 Lorazepam (Ativan) 0.5 mg Q6H PRN IV ANXIETY; Start 08/14/18 at 19:30 Sodium Chloride 1,000 ml @ 100 mls/hr Q10H IV Last administered on 08/14/18at 20:37; Admin Dose 100 MLS/HR; Start 08/14/18 at 19:22 Albuterol/ Ipratropium (Duoneb) 3 ml Q4H RESP THERAPY PRN HHN SHORTNESS OF BREATH; Start 08/14/18 at 19:30 Hydralazine HCl (Apresoline) 10 mg Q6H PRN IV ELEVATED BLOOD PRESSURE; Start 08/14/18 at 19:30 Nitroglycerin (Nitroglycerin (Sl Tab) 0.4 Mg) 1 tab Q5M PRN SL ANGINA; Start 08/14/18 at 19:30 Quetiapine Fumarate (Seroquel) 50 mg QAM PO ; Start 08/15/18 at 09:00 Patient Own Medication 1 ea QPM PO ; Start 08/14/18 at 22:30 Coded Allergies: No Known Allergy (Unverified , 08/03/18) Past Surgical History Past Surgical Hx: other Family History Significant Family History: no pertinent family hx Social History Alcohol Use: other Smoking Status: Never smoker Drug Use: none Exam/Review of Systems Vital Signs Vitals Vital Signs Date Temp Pulse Resp B/P (MAP) Pulse Ox O2 O2 Flow FiO2 Time Delivery Rate 08/14/18 98.2 94 17 139/77 97 20:48 (97) 08/14/18 Room Air 20:11 Exam Constitutional: alert, oriented, well developed Head: normocephalic, atraumatic Eyes: EOMI, PERRL Respiratory: clear to auscultation, normal air movement Cardiovascular: regular rate and rhythm, nl pulses Gastrointestinal: soft Extremities: normal pulses ALEJO JAUREGUI MD August 14, 2018 22:40
[2018-08-14 23:29] VITALS: Ht 170.2 cm; Wt 89.5 kg
[2018-08-15 02:03] VITALS: BP 104/61; PULSE 83; RESP 20
[2018-08-15] MEDS ORDERED: PANTOPRAZOLE 40 MG INJ IV SCH (06:00)
[2018-08-15] MEDS: SOD CHLORIDE 0.9% 1,000 ML IV SCH ×3 (06:15→21:19)
[2018-08-15 07:24] VITALS: BP 119/66; PULSE 81; RESP 18
[2018-08-15] MEDS: QUETIAPINE 25 MG TAB PO SCH (09:43)
--- NOTE | 2018-08-15 10:43 | PN ---
Date/Time of Note Date/Time of Note DATE: 08/15/18 TIME: 10:42 Assessment/Plan VTE Prophylaxis SCD contraindicated: low risk/ambulating Pharmacological prophylaxis: NA/contraindicated Pharm contraindication: low risk/ambulating Lines/Catheters IV Catheter Type (from Nrsg): Saline Lock Assessment/Plan Hospital Course Assessment and plan 1. GI bleed melena, stable continue n.p.o. PPI consult GI 2. Recent obstructive jaundice/choledocholithiasis status post sphincterotomy 3. Chronic schizophrenic disorder S:Melena no nausea vomiting fever alcohol use or nonsteroidals. Vague upper abdominal epigastric pain since discharge O: Vital signs stable Physical exam No pallor adenopathy icterus Regular no murmur rub gallop Clear Bowel sounds present nontender nondistended no RR G No edema Result Diagram: 08/15/18 0606 08/15/18 0606 Results 24hrs Laboratory Tests Test 08/14/18 17:39 08/14/18 17:43 08/15/18 06:06 Free Thyroxine 0.94 White Blood Count 10.1 8.2 Red Blood Count 3.51 #L 3.09 L Hemoglobin 11.1 #L 9.7 L Hematocrit 33.6 #L 29.6 L Mean Corpuscular Volume 95.7 95.8 Mean Corpuscular Hemoglobin 31.6 31.4 Mean Corpuscular Hemoglobin Concent 33.0 32.8 Red Cell Distribution Width 13.1 13.5 Platelet Count 407 # 366 Mean Platelet Volume 10.3 10.3 Immature Granulocytes % 1.000 H 0.600 H Neutrophils % 69.8 44.1 Lymphocytes % 24.2 49.0 Monocytes % 4.3 4.3 Eosinophils % 0.1 1.3 Basophils % 0.6 0.7 Nucleated Red Blood Cells % 0.0 0.0 Immature Granulocytes # 0.100 H 0.050 H Neutrophils # 7.0 3.6 Lymphocytes # 2.4 4.0 H Monocytes # 0.4 0.4 Eosinophils # 0.0 0.1 Basophils # 0.1 0.1 Nucleated Red Blood Cells # 0.0 0.0 Prothrombin Time 13.2 Prothrombin Time Ratio 1.0 INR International Normalized Ratio 0.99 Activated Partial Thromboplast Time 29.7 Sodium Level 138 144 Potassium Level 4.6 4.3 Chloride Level 105 113 H Carbon Dioxide Level 23 24 Anion Gap 10 7 Blood Urea Nitrogen 48 H 29 #H Creatinine 1.11 1.05 Est Glomerular Filtrat Rate mL/min > 60 > 60 Glucose Level 173 94 # Calcium Level 8.8 8.5 Troponin I < 0.012 Hemoglobin A1c 5.7 Phosphorus Level 3.3 Magnesium Level 2.1 Triglycerides Level 186 H Cholesterol Level 137 LDL Cholesterol, Calculated 75 HDL Cholesterol 25 L Cholesterol/HDL Ratio 5.4 Thyroid Stimulating Hormone (TSH) 1.780 Exam/Review of Systems Exam Vitals Vital Signs Date Temp Pulse Resp B/P (MAP) Pulse Ox O2 O2 Flow FiO2 Time Delivery Rate 08/15/18 97.9 81 18 119/66 99 Room Air 07:24 (83) Intake and Output 08/14/18 08/14/18 08/15/18 1515:00 23:00 07:00 IntakeIntake Total 1000 ml OutputOutput Total 750 ml BalanceBalance -750 ml 1000 ml Results Results 24hrs Laboratory Tests Test 08/14/18 17:39 08/14/18 17:43 08/15/18 06:06 Free Thyroxine 0.94 White Blood Count 10.1 8.2 Red Blood Count 3.51 #L 3.09 L Hemoglobin 11.1 #L 9.7 L Hematocrit 33.6 #L 29.6 L Mean Corpuscular Volume 95.7 95.8 Mean Corpuscular Hemoglobin 31.6 31.4 Mean Corpuscular Hemoglobin Concent 33.0 32.8 Red Cell Distribution Width 13.1 13.5 Platelet Count 407 # 366 Mean Platelet Volume 10.3 10.3 Immature Granulocytes % 1.000 H 0.600 H Neutrophils % 69.8 44.1 Lymphocytes % 24.2 49.0 Monocytes % 4.3 4.3 Eosinophils % 0.1 1.3 Basophils % 0.6 0.7 Nucleated Red Blood Cells % 0.0 0.0 Immature Granulocytes # 0.100 H 0.050 H Neutrophils # 7.0 3.6 Lymphocytes # 2.4 4.0 H Monocytes # 0.4 0.4 Eosinophils # 0.0 0.1 Basophils # 0.1 0.1 Nucleated Red Blood Cells # 0.0 0.0 Prothrombin Time 13.2 Prothrombin Time Ratio 1.0 INR International Normalized Ratio 0.99 Activated Partial Thromboplast Time 29.7 Sodium Level 138 144 Potassium Level 4.6 4.3 Chloride Level 105 113 H Carbon Dioxide Level 23 24 Anion Gap 10 7 Blood Urea Nitrogen 48 H 29 #H Creatinine 1.11 1.05 Est Glomerular Filtrat Rate mL/min > 60 > 60 Glucose Level 173 94 # Calcium Level 8.8 8.5 Troponin I < 0.012 Hemoglobin A1c 5.7 Phosphorus Level 3.3 Magnesium Level 2.1 Triglycerides Level 186 H Cholesterol Level 137 LDL Cholesterol, Calculated 75 HDL Cholesterol 25 L Cholesterol/HDL Ratio 5.4 Thyroid Stimulating Hormone (TSH) 1.780 Medications Medication Current Medications IV Flush (NS 3 ml) 3 ml PER PROTOCOL IV ; Start 08/14/18 at 19:30 Ondansetron HCl (Zofran Inj) 4 mg Q6H PRN IV NAUSEA/VOMITING; Start 08/14/18 at 19:30 Acetaminophen (Tylenol Tab) 650 mg Q6H PRN PO .PAIN 1-3 OR TEMP; Start 08/14/18 at 19:30 Acetaminophen/ Hydrocodone Bitart ([place] (5/325)) 1 tab Q6H PRN PO .MOD PAIN 4- 6; Start 08/14/18 at 19:30 Morphine Sulfate (morphine) 2 mg Q4H PRN IV .SEVERE PAIN 7-10; Start 08/14/18 at 19:30 Docusate Sodium (Colace) 100 mg Q12H PRN PO .CONSTIPATION; Start 08/14/18 at 19:30 Magnesium Hydroxide (Milk Of Mag) 30 ml DAILY PRN PO .CONSTIPATION; Start 08/14/18 at 19:30 Pantoprazole (Protonix Iv) 40 mg DAILY@06 IV Last administered on 08/15/18at 05:13; Admin Dose 40 MG; Start 08/15/18 at 06:00 Lorazepam (Ativan) 0.5 mg Q6H PRN IV ANXIETY; Start 08/14/18 at 19:30 Sodium Chloride 1,000 ml @ 100 mls/hr Q10H IV Last administered on 08/15/18at 06:15; Admin Dose 100 MLS/HR; Start 08/14/18 at 19:22 Albuterol/ Ipratropium (Duoneb) 3 ml Q4H RESP THERAPY PRN HHN SHORTNESS OF BREATH; Start 08/14/18 at 19:30 Hydralazine HCl (Apresoline) 10 mg Q6H PRN IV ELEVATED BLOOD PRESSURE; Start 08/14/18 at 19:30 Nitroglycerin (Nitroglycerin (Sl Tab) 0.4 Mg) 1 tab Q5M PRN SL ANGINA; Start 08/14/18 at 19:30 Quetiapine Fumarate (Seroquel) 50 mg QAM PO Last administered on 08/15/18at 09:43; Admin Dose 50 MG; Start 08/15/18 at 09:00 Patient Own Medication 1 ea QPM PO Last administered on 08/14/18at 22:40; Admin Dose 1 EA; Start 08/14/18 at 22:30 MELINDA BHATIA MD August 15, 2018 10:43
[2018-08-15 14:15] VITALS: BP 106/60; PULSE 70; RESP 16
--- NOTE | 2018-08-15 15:23 | CONS ---
Assessment/Plan Assessment/Plan Hospital Course (Demo Recall) Summary Assessment and Plan: Assessment: Melena Recent choledocholithiasis status post ERCP with sphincterotomy Schizophrenia disorder Plan: Change PPI to gtt Will check HGB at 1800, then continue to monitor transfuse as needed EGD tomorrow Endoscopy - risks/benefits/alternatives/indications of procedure and sedation/anesthesia discussed with patient who states understading and gives informed consent to proceed. Patient seen in collaboration with Dr. Stallings CC: PARDEEP STALLINGS ; Consultation Date/Type/Reason Admit Date/Time August 14, 2018 at 19:12 Date of Consultation: August 15, 2018 Type of Consult GI Reason for Consultation Melena Date/Time of Note DATE: 08/15/18 TIME: 15:19 Hx of Present Illness This a 53-year-old male with past medical history of psychological disorder recently admitted for choledocholithiasis on 08/04/2018 he underwent a ERCP with post precuts enterotomy with stone removal, post standard complexion sphin cterotomy, post balloon sweep of the common bile duct. Patient was stabilized with a noted hemoglobin at discharge of 15.6. He returned to the ED yesterday with complaints of melena and dizziness evaluation patient noted to have a hemoglobin of 11.1 CBC was rechecked this morning hemoglobin is dropped to 9.0. After speaking with nurse patient has had 2 episodes of melena last night and again 2 episodes of this morning. Discussed plan with patient for EGD. I reviewed risk/benefits of sedation and procedure. Pt verbalized understanding and is agreeable. Review of Systems: A 12 system, review was conducted and is negative except as noted in the HPI or here. Past Medical History Home Meds Reported Medications Clonazepam* (Clonazepam*) 1 Mg Tablet, 1 MG PO BID PRN for ANXIETY, TAB 01/20/18 Quetiapine Fumarate* (Seroquel* XR) 150 Mg Tab.sr.24h, 150 MG PO QPM, #30 TAB 01/20/18 Quetiapine Fumarate* (Seroquel*) 50 Mg Tablet, 50 MG PO QAM, TAB 01/20/18 Medications Current Medications IV Flush (NS 3 ml) 3 ml PER PROTOCOL IV ; Start 08/14/18 at 19:30 Ondansetron HCl (Zofran Inj) 4 mg Q6H PRN IV NAUSEA/VOMITING; Start 08/14/18 at 19:30 Acetaminophen (Tylenol Tab) 650 mg Q6H PRN PO .PAIN 1-3 OR TEMP; Start 08/14/18 at 19:30 Acetaminophen/ Hydrocodone Bitart ([place] (5/325)) 1 tab Q6H PRN PO .MOD PAIN 4- 6; Start 08/14/18 at 19:30 Morphine Sulfate (morphine) 2 mg Q4H PRN IV .SEVERE PAIN 7-10; Start 08/14/18 at 19:30 Docusate Sodium (Colace) 100 mg Q12H PRN PO .CONSTIPATION; Start 08/14/18 at 19:30 Magnesium Hydroxide (Milk Of Mag) 30 ml DAILY PRN PO .CONSTIPATION; Start 08/14/18 at 19:30 Pantoprazole (Protonix Iv) 40 mg DAILY@06 IV Last administered on 08/15/18at 05:13; Admin Dose 40 MG; Start 08/15/18 at 06:00 Lorazepam (Ativan) 0.5 mg Q6H PRN IV ANXIETY; Start 08/14/18 at 19:30 Sodium Chloride 1,000 ml @ 100 mls/hr Q10H IV Last administered on 08/15/18at 06:15; Admin Dose 100 MLS/HR; Start 08/14/18 at 19:22 Albuterol/ Ipratropium (Duoneb) 3 ml Q4H RESP THERAPY PRN HHN SHORTNESS OF BREATH; Start 08/14/18 at 19:30 Hydralazine HCl (Apresoline) 10 mg Q6H PRN IV ELEVATED BLOOD PRESSURE; Start 08/14/18 at 19:30 Nitroglycerin (Nitroglycerin (Sl Tab) 0.4 Mg) 1 tab Q5M PRN SL ANGINA; Start 08/14/18 at 19:30 Quetiapine Fumarate (Seroquel) 50 mg QAM PO Last administered on 08/15/18at 09:43; Admin Dose 50 MG; Start 08/15/18 at 09:00 Patient Own Medication 1 ea QPM PO Last administered on 08/14/18at 22:40; Admin Dose 1 EA; Start 08/14/18 at 22:30 Allergies: Coded Allergies: No Known Allergy (Unverified , 08/03/18) Past Surgical History Past Surgical Hx: other Social History Smoking Status: Never smoker Exam/Review of Systems Exam Vitals Vital Signs Date Temp Pulse Resp B/P (MAP) Pulse Ox O2 O2 Flow FiO2 Time Delivery Rate 08/15/18 98.1 70 16 106/60 96 Room Air 14:15 (75) Intake and Output 08/14/18 08/14/18 08/15/18 1515:00 23:00 07:00 IntakeIntake Total 1000 ml OutputOutput Total 750 ml BalanceBalance -750 ml 1000 ml Exam PHYSICAL EXAMINATION: GENERAL: Alert & oriented x 3, in no acute distress SKIN: No lesions HEAD: Normocephalic, atraumatic, no tenderness. EYES: Pupils equal reactive to light and accommodation, no discharge. EARS/NOSE AND THROAT: Ears normal, nose normal. NECK: Supple, no masses CHEST: Inspection within normal limits. CARDIOVASCULAR: Heart: Regular rate and rhythm, no murmurs RESPIRATORY: Lungs clear to auscultation GASTROINTESTINAL AND LIVER: Abdomen: Soft, non tenderness, non-distended, no hernias, no masses, no organomegaly, no ascites, no guarding, no rebound tenderness, normoactive bowel sounds. Rectal: Deferred. EXTREMITIES: No cyanosis, clubbing or edema. Results Result Diagram: 08/15/18 0606 08/15/18 0606 Results 24hrs Laboratory Tests Test 08/14/18 17:39 08/14/18 17:43 08/15/18 06:06 Free Thyroxine 0.94 White Blood Count 10.1 8.2 Red Blood Count 3.51 #L 3.09 L Hemoglobin 11.1 #L 9.7 L Hematocrit 33.6 #L 29.6 L Mean Corpuscular Volume 95.7 95.8 Mean Corpuscular Hemoglobin 31.6 31.4 Mean Corpuscular Hemoglobin Concent 33.0 32.8 Red Cell Distribution Width 13.1 13.5 Platelet Count 407 # 366 Mean Platelet Volume 10.3 10.3 Immature Granulocytes % 1.000 H 0.600 H Neutrophils % 69.8 44.1 Lymphocytes % 24.2 49.0 Monocytes % 4.3 4.3 Eosinophils % 0.1 1.3 Basophils % 0.6 0.7 Nucleated Red Blood Cells % 0.0 0.0 Immature Granulocytes # 0.100 H 0.050 H Neutrophils # 7.0 3.6 Lymphocytes # 2.4 4.0 H Monocytes # 0.4 0.4 Eosinophils # 0.0 0.1 Basophils # 0.1 0.1 Nucleated Red Blood Cells # 0.0 0.0 Prothrombin Time 13.2 Prothrombin Time Ratio 1.0 INR International Normalized Ratio 0.99 Activated Partial Thromboplast Time 29.7 Sodium Level 138 144 Potassium Level 4.6 4.3 Chloride Level 105 113 H Carbon Dioxide Level 23 24 Anion Gap 10 7 Blood Urea Nitrogen 48 H 29 #H Creatinine 1.11 1.05 Est Glomerular Filtrat Rate mL/min > 60 > 60 Glucose Level 173 94 # Calcium Level 8.8 8.5 Troponin I < 0.012 Hemoglobin A1c 5.7 Phosphorus Level 3.3 Magnesium Level 2.1 Triglycerides Level 186 H Cholesterol Level 137 LDL Cholesterol, Calculated 75 HDL Cholesterol 25 L Cholesterol/HDL Ratio 5.4 Thyroid Stimulating Hormone (TSH) 1.780 Medications Medication Current Medications IV Flush (NS 3 ml) 3 ml PER PROTOCOL IV ; Start 08/14/18 at 19:30 Ondansetron HCl (Zofran Inj) 4 mg Q6H PRN IV NAUSEA/VOMITING; Start 08/14/18 at 19:30 Acetaminophen (Tylenol Tab) 650 mg Q6H PRN PO .PAIN 1-3 OR TEMP; Start 08/14/18 at 19:30 Acetaminophen/ Hydrocodone Bitart ([place] (5/325)) 1 tab Q6H PRN PO .MOD PAIN 4- 6; Start 08/14/18 at 19:30 Morphine Sulfate (morphine) 2 mg Q4H PRN IV .SEVERE PAIN 7-10; Start 08/14/18 at 19:30 Docusate Sodium (Colace) 100 mg Q12H PRN PO .CONSTIPATION; Start 08/14/18 at 19:30 Magnesium Hydroxide (Milk Of Mag) 30 ml DAILY PRN PO .CONSTIPATION; Start 08/14/18 at 19:30 Pantoprazole (Protonix Iv) 40 mg DAILY@06 IV Last administered on 08/15/18at 05:13; Admin Dose 40 MG; Start 08/15/18 at 06:00 Lorazepam (Ativan) 0.5 mg Q6H PRN IV ANXIETY; Start 08/14/18 at 19:30 Sodium Chloride 1,000 ml @ 100 mls/hr Q10H IV Last administered on 08/15/18at 06:15; Admin Dose 100 MLS/HR; Start 08/14/18 at 19:22 Albuterol/ Ipratropium (Duoneb) 3 ml Q4H RESP THERAPY PRN HHN SHORTNESS OF BREATH; Start 08/14/18 at 19:30 Hydralazine HCl (Apresoline) 10 mg Q6H PRN IV ELEVATED BLOOD PRESSURE; Start 08/14/18 at 19:30 Nitroglycerin (Nitroglycerin (Sl Tab) 0.4 Mg) 1 tab Q5M PRN SL ANGINA; Start 08/14/18 at 19:30 Quetiapine Fumarate (Seroquel) 50 mg QAM PO Last administered on 08/15/18at 09:43; Admin Dose 50 MG; Start 08/15/18 at 09:00 Patient Own Medication 1 ea QPM PO Last administered on 08/14/18at 22:40; Admin Dose 1 EA; Start 08/14/18 at 22:30 KONG DOMÍNGUEZ August 15, 2018 15:23
[2018-08-15] MEDS: PANTOPRAZOLE IV 80 MG in SOD CHLORIDE 0.9% 100 ML IV SCH ×2 (16:47→21:19)
[2018-08-15 20:00] VITALS: BP 116/66; PULSE 74; RESP 18
[2018-08-15] MEDS: QUETIAPINE 150 MG PO SCH (21:18)
[2018-08-16] VITALS (7 sets, daily range): BP systolic 109–140; BP diastolic 55–75; PULSE 68–80; RESP 12–20
[2018-08-16] MEDS: PANTOPRAZOLE IV 80 MG in SOD CHLORIDE 0.9% 100 ML IV SCH ×2 (01:27→21:13)
[2018-08-16] MEDS: SOD CHLORIDE 0.9% 1,000 ML IV SCH ×2 (02:37→14:34)
[2018-08-16] MEDS ORDERED: PROPOFOL 40 ML ONE (08:07)
--- NOTE | 2018-08-16 08:07 | HPN ---
Date/Time of Note Date/Time of Note DATE: 08/16/18 TIME: 08:07 Interval H&P Admission Note Pt. seen H&P reviewed: No system changes PARDEEP STALLINGS August 16, 2018 08:07
--- NOTE | 2018-08-16 08:07 | PREAC ---
Date/Time of Note Date/Time of Note DATE: 08/16/18 TIME: 08:06 Anesthesia Eval and Record Evaluation Time Pre-Procedure Interview DATE: 08/16/18 TIME: 08:06 Age 53 Sex male NPO: 8 hrs Preoperative diagnosis upper gi bleed Planned procedure egd Past Medical History Past Medical History: Includes Heme: Anemia Psych: Other (schizoph.) Surgery & Anesthesia Issues No known issue Meds Anticoagulation: No Beta Arturo within 24 hr: No Reason Beta Arturo not given: Pt. not on B-Arturo Reported Medications Clonazepam* (Clonazepam*) 1 Mg Tablet, 1 MG PO BID PRN for ANXIETY, TAB 01/20/18 Quetiapine Fumarate* (Seroquel* XR) 150 Mg Tab.sr.24h, 150 MG PO QPM, #30 TAB 01/20/18 Quetiapine Fumarate* (Seroquel*) 50 Mg Tablet, 50 MG PO QAM, TAB 01/20/18 Current Medications IV Flush (NS 3 ml) 3 ml PER PROTOCOL IV ; Start 08/14/18 at 19:30 Ondansetron HCl (Zofran Inj) 4 mg Q6H PRN IV NAUSEA/VOMITING; Start 08/14/18 at 19:30 Acetaminophen (Tylenol Tab) 650 mg Q6H PRN PO .PAIN 1-3 OR TEMP; Start 08/14/18 at 19:30 Acetaminophen/ Hydrocodone Bitart ([place] (5/325)) 1 tab Q6H PRN PO .MOD PAIN 4- 6; Start 08/14/18 at 19:30 Morphine Sulfate (morphine) 2 mg Q4H PRN IV .SEVERE PAIN 7-10; Start 08/14/18 at 19:30 Docusate Sodium (Colace) 100 mg Q12H PRN PO .CONSTIPATION; Start 08/14/18 at 19:30 Magnesium Hydroxide (Milk Of Mag) 30 ml DAILY PRN PO .CONSTIPATION; Start 08/14/18 at 19:30 Lorazepam (Ativan) 0.5 mg Q6H PRN IV ANXIETY; Start 08/14/18 at 19:30 Sodium Chloride 1,000 ml @ 100 mls/hr Q10H IV Last administered on 08/16/18at 02:37; Admin Dose 100 MLS/HR; Start 08/14/18 at 19:22 Albuterol/ Ipratropium (Duoneb) 3 ml Q4H RESP THERAPY PRN HHN SHORTNESS OF BREATH; Start 08/14/18 at 19:30 Hydralazine HCl (Apresoline) 10 mg Q6H PRN IV ELEVATED BLOOD PRESSURE; Start 08/14/18 at 19:30 Nitroglycerin (Nitroglycerin (Sl Tab) 0.4 Mg) 1 tab Q5M PRN SL ANGINA; Start 08/14/18 at 19:30 Quetiapine Fumarate (Seroquel) 50 mg QAM PO Last administered on 08/15/18at 09:43; Admin Dose 50 MG; Start 08/15/18 at 09:00 Patient Own Medication 1 ea QPM PO Last administered on 08/15/18at 21:18; Admin Dose 1 EA; Start 08/14/18 at 22:30 Pantoprazole 80 mg/Sodium Chloride 100 ml @ 10 mls/hr Q10H IV Last administered on 08/16/18at 01:27; Admin Dose 10 MLS/HR; Start 08/15/18 at 16:30 Meds reviewed: Yes Allergies Coded Allergies: No Known Allergy (Unverified , 08/03/18) Allergies Reviewed: Yes Labs/Studies Labs Reviewed: Reviewed by anesthesiologist Result Diagram: 08/16/18 0542 08/16/18 0539 Laboratory Tests 08/16/18 05:39 08/16/18 05:42 test: N/A Pre-procedure Exam Last vitals Vital Signs Date Temp Pulse Resp B/P (MAP) Pulse Ox O2 O2 Flow FiO2 Time Delivery Rate 08/16/18 98.2 73 18 109/55 95 02:00 (73) 08/15/18 Room Air 14:15 Airway: Adequate mouth opening, Adequate thyromental dist Mallampati: Mallampati II Teeth: Normal Lung: Normal Heart: Normal ASA Physical Status ASA physical status: 3 Emergency: E Planned Anesthetic General/MAC: MAC Planned Pain Management Parenteral pain med Pre-operative Attestations Prior to commencing anesthesia and surgery, the patient was re-evaluated, there was verification of: *The patient's identity *The results of appropriate recent lab work and preoperative vital signs *The above evaluation not changing prior to induction *Anesthetic plan, risk benefits, alternative and complications discussed with patient/family; questions answered; patient/family understands, accepts and wishes to proceed. AMANDA ANDINO August 16, 2018 08:07
[2018-08-16] MEDS ORDERED: LIDOCAINE 2% (SDV) 5 ML INJ ONE (08:08)
[2018-08-16] MEDS: QUETIAPINE 25 MG TAB PO SCH (09:00)
--- NOTE | 2018-08-16 16:23 | PN ---
Date/Time of Note Date/Time of Note DATE: 08/16/18 TIME: 16:19 Assessment/Plan VTE Prophylaxis Risk score (from [facility])>0 risk: 2 SCD applied (from [facility]): Yes Pharmacological prophylaxis: NA/contraindicated Pharm contraindication: bleeding Lines/Catheters IV Catheter Type (from [facility]): Peripheral IV Assessment/Plan Assessment/Plan 1. Acute upper GI bleed - GI on board and appreciate recommendations. s/p EGD with normal findings. Plans for SBFT to assess for small bowel lesions - PPI - monitor for further episodes 2. Acute blood loss anemia - no need for transfusions at this time 3. Mood disorder - continue home medications 4. Disposition - continue monitoring H/H and awaiting SBFT Result Diagram: 08/16/18 0542 08/16/18 0539 Results 24hrs Laboratory Tests Test 08/15/18 19:21 08/16/18 05:39 08/16/18 05:42 Hemoglobin 10.5 L 9.0 L Hematocrit 31.4 L 27.5 L Sodium Level 141 Potassium Level 4.0 Chloride Level 111 H Carbon Dioxide Level 25 Anion Gap 5 Blood Urea Nitrogen 19 # Creatinine 1.09 Est Glomerular Filtrat Rate mL/min > 60 Glucose Level 84 Calcium Level 8.5 Total Bilirubin 0.5 Direct Bilirubin 0.00 Indirect Bilirubin 0.5 Aspartate Amino Transf (AST/SGOT) 46 Alanine Aminotransferase (ALT/SGPT) 107 H Alkaline Phosphatase 82 Total Protein 5.8 L Albumin 3.4 Globulin 2.40 Albumin/Globulin Ratio 1.41 Thyroid Stimulating Hormone (TSH) 3.230 White Blood Count 8.0 Red Blood Count 2.87 L Mean Corpuscular Volume 95.8 Mean Corpuscular Hemoglobin 31.4 Mean Corpuscular Hemoglobin Concent 32.7 Red Cell Distribution Width 13.2 Platelet Count 317 Mean Platelet Volume 10.9 H Immature Granulocytes % 0.500 H Neutrophils % 35.9 L Lymphocytes % 56.3 H Monocytes % 4.3 Eosinophils % 2.0 Basophils % 1.0 Nucleated Red Blood Cells % 0.0 Immature Granulocytes # 0.040 H Neutrophils # 2.9 Lymphocytes # 4.5 H Monocytes # 0.3 Eosinophils # 0.2 Basophils # 0.1 Nucleated Red Blood Cells # 0.0 Magnesium Level 2.1 Subjective 24 Hr Interval Summary Free Text/Dictation Patient denies any further melena or BRBPR. last BM was brown. Requesting to eat but denies any new complaints. Exam/Review of Systems Exam Vitals Vital Signs Date Temp Pulse Resp B/P (MAP) Pulse Ox O2 O2 Flow FiO2 Time Delivery Rate 08/16/18 97.7 80 18 137/75 97 Room Air 14:00 (95) 08/16/18 15 08:20 Intake and Output 08/15/18 08/15/18 08/16/18 1515:00 23:00 07:00 IntakeIntake Total 1220 ml 445 ml BalanceBalance 1220 ml 445 ml Exam General: Patient is pleasant, currently lying in bed in no acute distress Neck: Supple Lungs: Clear to auscultation bilaterally, no wheezing or rhonchi Heart: Normal S1-S2, Regular rhythm and rate. No murmur, S3, or S4 Abdomen: Soft , nontender, nondistended , bowel sounds are present. No guarding no rebound tenderness Extremities: Normal to inspection, no edema no cyanosis Skin: no rashes or lesions Results Results 24hrs Laboratory Tests Test 08/15/18 19:21 08/16/18 05:39 08/16/18 05:42 Hemoglobin 10.5 L 9.0 L Hematocrit 31.4 L 27.5 L Sodium Level 141 Potassium Level 4.0 Chloride Level 111 H Carbon Dioxide Level 25 Anion Gap 5 Blood Urea Nitrogen 19 # Creatinine 1.09 Est Glomerular Filtrat Rate mL/min > 60 Glucose Level 84 Calcium Level 8.5 Total Bilirubin 0.5 Direct Bilirubin 0.00 Indirect Bilirubin 0.5 Aspartate Amino Transf (AST/SGOT) 46 Alanine Aminotransferase (ALT/SGPT) 107 H Alkaline Phosphatase 82 Total Protein 5.8 L Albumin 3.4 Globulin 2.40 Albumin/Globulin Ratio 1.41 Thyroid Stimulating Hormone (TSH) 3.230 White Blood Count 8.0 Red Blood Count 2.87 L Mean Corpuscular Volume 95.8 Mean Corpuscular Hemoglobin 31.4 Mean Corpuscular Hemoglobin Concent 32.7 Red Cell Distribution Width 13.2 Platelet Count 317 Mean Platelet Volume 10.9 H Immature Granulocytes % 0.500 H Neutrophils % 35.9 L Lymphocytes % 56.3 H Monocytes % 4.3 Eosinophils % 2.0 Basophils % 1.0 Nucleated Red Blood Cells % 0.0 Immature Granulocytes # 0.040 H Neutrophils # 2.9 Lymphocytes # 4.5 H Monocytes # 0.3 Eosinophils # 0.2 Basophils # 0.1 Nucleated Red Blood Cells # 0.0 Magnesium Level 2.1 Medications Medication Current Medications IV Flush (NS 3 ml) 3 ml PER PROTOCOL IV ; Start 08/14/18 at 19:30 Ondansetron HCl (Zofran Inj) 4 mg Q6H PRN IV NAUSEA/VOMITING; Start 08/14/18 at 19:30 Acetaminophen (Tylenol Tab) 650 mg Q6H PRN PO .PAIN 1-3 OR TEMP; Start 08/14/18 at 19:30 Acetaminophen/ Hydrocodone Bitart ([place] (5/325)) 1 tab Q6H PRN PO .MOD PAIN 4- 6; Start 08/14/18 at 19:30 Morphine Sulfate (morphine) 2 mg Q4H PRN IV .SEVERE PAIN 7-10; Start 08/14/18 at 19:30 Docusate Sodium (Colace) 100 mg Q12H PRN PO .CONSTIPATION; Start 08/14/18 at 19:30 Magnesium Hydroxide (Milk Of Mag) 30 ml DAILY PRN PO .CONSTIPATION; Start 08/14/18 at 19:30 Lorazepam (Ativan) 0.5 mg Q6H PRN IV ANXIETY; Start 08/14/18 at 19:30 Sodium Chloride 1,000 ml @ 100 mls/hr Q10H IV Last administered on 08/16/18at 14:34; Admin Dose 100 MLS/HR; Start 08/14/18 at 19:22 Albuterol/ Ipratropium (Duoneb) 3 ml Q4H RESP THERAPY PRN HHN SHORTNESS OF BREATH; Start 08/14/18 at 19:30 Hydralazine HCl (Apresoline) 10 mg Q6H PRN IV ELEVATED BLOOD PRESSURE; Start 08/14/18 at 19:30 Nitroglycerin (Nitroglycerin (Sl Tab) 0.4 Mg) 1 tab Q5M PRN SL ANGINA; Start 08/14/18 at 19:30 Quetiapine Fumarate (Seroquel) 50 mg QAM PO Last administered on 08/15/18at 09:43; Admin Dose 50 MG; Start 08/15/18 at 09:00 Patient Own Medication 1 ea QPM PO Last administered on 08/15/18at 21:18; Admin Dose 1 EA; Start 08/14/18 at 22:30 Pantoprazole 80 mg/Sodium Chloride 100 ml @ 10 mls/hr Q10H IV Last administered on 08/16/18at 01:27; Admin Dose 10 MLS/HR; Start 08/15/18 at 16:30 MASHA ORTIZ MD August 16, 2018 16:23
[2018-08-16] MEDS ORDERED: IOHEXOL 300MG/ML 150 ML BTL ONE (17:03)
[2018-08-16] MEDS: QUETIAPINE 150 MG PO SCH (21:13)
[2018-08-17 02:32] VITALS: BP 112/61; PULSE 72; RESP 16
[2018-08-17 07:30] VITALS: BP 123/61; PULSE 64; RESP 18
[2018-08-17] MEDS: SOD CHLORIDE 0.9% 1,000 ML IV SCH ×2 (07:56→17:22)
[2018-08-17] MEDS: PANTOPRAZOLE IV 80 MG in SOD CHLORIDE 0.9% 100 ML IV SCH ×2 (07:57→18:18)
[2018-08-17] MEDS: QUETIAPINE 25 MG TAB PO SCH (09:25)
--- NOTE | 2018-08-17 10:10 | PAC ---
Date/Time of Note Date/Time of Note DATE: 08/17/18 TIME: 10:10 Post-Anesthesia Notes Post-Anesthesia Note Last documented vital signs Vital Signs Date Temp Pulse Resp B/P (MAP) Pulse Ox O2 O2 Flow FiO2 Time Delivery Rate 08/17/18 98.3 64 18 123/61 96 Room Air 07:30 (81) 08/16/18 15 08:20 Activity: WNL Respiratory function: WNL Cardiovascular function: WNL Mental status: Baseline Pain reasonably controlled: Yes Hydration appropriate: Yes Nausea/Vomiting absent: Yes AMANDA ANDINO August 17, 2018 10:10
--- NOTE | 2018-08-17 10:33 | PN ---
Date/Time of Note Date/Time of Note DATE: 08/17/18 TIME: 10:28 Assessment/Plan VTE Prophylaxis Risk score (from Ns)>0 risk: 2 SCD applied (from Ns): Yes Pharmacological prophylaxis: other (scds) Lines/Catheters IV Catheter Type (from [facility]): Peripheral IV Assessment/Plan Hospital Course Summary Assessment and Plan: Assessment: Melena EGD 08/16/2018 Patient appears to have recent upper GI bleed, however his urgent EGD did not show any active bleeding to the third portion of the duodenum. No blood noted at all in the upper GI tract However, his hemoglobin continues to drop -SB series- Normal small bowel study. Recent choledocholithiasis status post ERCP with sphincterotomy Schizophrenia disorder Plan: PPI BID Advance diet as tolerated monitor H/H Monitor diarrhea- pt states has been having diarrhea since Thursday- was to be likely for UGIB- now having diarrhea today- likely from contrast used for SB series. However will order stool studies to r/o pathogens- given recent hospitalization Continue PPI BID Patient seen in collaboration with Dr. Mckeon Subjective: Course reviewed with nursing staff Patient interviewed and examined All labs, imaging and other results reviewed The patient states he is feeling better despite diarrhea. No c/o dizziness with ambulation, abdominal pain nausea or vomiting. Stool is now described as yellow/brownish PHYSICAL EXAMINATION: GENERAL: Alert & oriented x 3, in no acute distress SKIN: No lesions HEAD: Normocephalic, atraumatic, no tenderness. EYES: Pupils equal reactive to light and accommodation, no discharge. EARS/NOSE AND THROAT: Ears normal, nose normal. NECK: Supple, no masses CHEST: Inspection within normal limits. CARDIOVASCULAR: Heart: Regular rate and rhythm, no murmurs RESPIRATORY: Lungs clear to auscultation GASTROINTESTINAL AND LIVER: Abdomen: Soft, non tenderness, non-distended, no hernias, no masses, no organomegaly, no ascites, no guarding, no rebound tenderness, normoactive bowel sounds. Rectal: Deferred. EXTREMITIES: No cyanosis, clubbing or edema. Result Diagram: 08/17/18 0513 08/17/18 0513 Results 24hrs Laboratory Tests Test 08/17/18 05:13 White Blood Count 7.2 Red Blood Count 2.94 L Hemoglobin 9.4 L Hematocrit 28.0 L Mean Corpuscular Volume 95.2 Mean Corpuscular Hemoglobin 32.0 Mean Corpuscular Hemoglobin Concent 33.6 Red Cell Distribution Width 13.2 Platelet Count 404 # Mean Platelet Volume 10.3 Immature Granulocytes % 0.600 H Neutrophils % 40.4 Lymphocytes % 52.3 H Monocytes % 4.4 Eosinophils % 1.5 Basophils % 0.8 Nucleated Red Blood Cells % 0.0 Immature Granulocytes # 0.040 H Neutrophils # 2.9 Lymphocytes # 3.8 H Monocytes # 0.3 Eosinophils # 0.1 Basophils # 0.1 Nucleated Red Blood Cells # 0.0 Sodium Level 144 Potassium Level 3.6 Chloride Level 111 H Carbon Dioxide Level 25 Anion Gap 8 Blood Urea Nitrogen 18 Creatinine 1.10 Est Glomerular Filtrat Rate mL/min > 60 Glucose Level 89 Calcium Level 8.6 Exam/Review of Systems Exam Vitals Vital Signs Date Temp Pulse Resp B/P (MAP) Pulse Ox O2 O2 Flow FiO2 Time Delivery Rate 08/17/18 98.3 64 18 123/61 96 Room Air 07:30 (81) 08/16/18 15 08:20 Intake and Output 08/16/18 08/16/18 08/17/18 1515:00 23:00 07:00 IntakeIntake Total 80 ml BalanceBalance 80 ml Results Results 24hrs Laboratory Tests Test 08/17/18 05:13 White Blood Count 7.2 Red Blood Count 2.94 L Hemoglobin 9.4 L Hematocrit 28.0 L Mean Corpuscular Volume 95.2 Mean Corpuscular Hemoglobin 32.0 Mean Corpuscular Hemoglobin Concent 33.6 Red Cell Distribution Width 13.2 Platelet Count 404 # Mean Platelet Volume 10.3 Immature Granulocytes % 0.600 H Neutrophils % 40.4 Lymphocytes % 52.3 H Monocytes % 4.4 Eosinophils % 1.5 Basophils % 0.8 Nucleated Red Blood Cells % 0.0 Immature Granulocytes # 0.040 H Neutrophils # 2.9 Lymphocytes # 3.8 H Monocytes # 0.3 Eosinophils # 0.1 Basophils # 0.1 Nucleated Red Blood Cells # 0.0 Sodium Level 144 Potassium Level 3.6 Chloride Level 111 H Carbon Dioxide Level 25 Anion Gap 8 Blood Urea Nitrogen 18 Creatinine 1.10 Est Glomerular Filtrat Rate mL/min > 60 Glucose Level 89 Calcium Level 8.6 Medications Medication Current Medications IV Flush (NS 3 ml) 3 ml PER PROTOCOL IV ; Start 08/14/18 at 19:30 Ondansetron HCl (Zofran Inj) 4 mg Q6H PRN IV NAUSEA/VOMITING; Start 08/14/18 at 19:30 Acetaminophen (Tylenol Tab) 650 mg Q6H PRN PO .PAIN 1-3 OR TEMP; Start 08/14/18 at 19:30 Acetaminophen/ Hydrocodone Bitart ([place] (5/325)) 1 tab Q6H PRN PO .MOD PAIN 4- 6; Start 08/14/18 at 19:30 Morphine Sulfate (morphine) 2 mg Q4H PRN IV .SEVERE PAIN 7-10; Start 08/14/18 a t 19:30 Docusate Sodium (Colace) 100 mg Q12H PRN PO .CONSTIPATION; Start 08/14/18 at 19:30 Magnesium Hydroxide (Milk Of Mag) 30 ml DAILY PRN PO .CONSTIPATION; Start 08/14/18 at 19:30 Lorazepam (Ativan) 0.5 mg Q6H PRN IV ANXIETY; Start 08/14/18 at 19:30 Sodium Chloride 1,000 ml @ 100 mls/hr Q10H IV Last administered on 08/17/18at 07:56; Admin Dose 100 MLS/HR; Start 08/14/18 at 19:22 Albuterol/ Ipratropium (Duoneb) 3 ml Q4H RESP THERAPY PRN HHN SHORTNESS OF BREATH; Start 08/14/18 at 19:30 Hydralazine HCl (Apresoline) 10 mg Q6H PRN IV ELEVATED BLOOD PRESSURE; Start 08/14/18 at 19:30 Nitroglycerin (Nitroglycerin (Sl Tab) 0.4 Mg) 1 tab Q5M PRN SL ANGINA; Start 08/14/18 at 19:30 Quetiapine Fumarate (Seroquel) 50 mg QAM PO Last administered on 08/17/18at 09:25; Admin Dose 50 MG; Start 08/15/18 at 09:00 Patient Own Medication 1 ea QPM PO Last administered on 08/16/18at 21:13; Admin Dose 1 EA; Start 08/14/18 at 22:30 Pantoprazole 80 mg/Sodium Chloride 100 ml @ 10 mls/hr Q10H IV Last ad ministered on 08/17/18at 07:57; Admin Dose 10 MLS/HR; Start 08/15/18 at 16:30 KONG DOMÍNGUEZ August 17, 2018 10:33
[2018-08-17 14:14] VITALS: BP 121/59; PULSE 74; RESP 16
--- NOTE | 2018-08-17 16:40 | PN ---
Date/Time of Note Date/Time of Note DATE: 08/17/18 TIME: 16:37 Assessment/Plan VTE Prophylaxis Risk score (from [facility])>0 risk: 2 SCD applied (from [facility]): Yes Pharmacological prophylaxis: NA/contraindicated Pharm contraindication: bleeding Lines/Catheters IV [facility]ter Type (from [facility]): Peripheral IV Assessment/Plan Assessment/Plan 1. Acute upper GI bleed- resolved - GI on board and appreciate recommendations. s/p EGD with normal findings - small bowel series resulted as normal - PPI - monitor for further episodes 2. Acute blood loss anemia - no need for transfusions at this time - hemoglobin improving 3. Mood disorder - continue home medications 4. Diarrhea - GI requested stool studies - most likely from barium given during bowel series 5. Disposition - stool studies sent and if negative will give Imodium if still persists. once hgb remains stable and diarrhea resolves, will d/c home Result Diagram: 08/17/18 0513 08/17/18 0513 Results 24hrs Laboratory Tests Test 08/17/18 05:13 White Blood Count 7.2 Red Blood Count 2.94 L Hemoglobin 9.4 L Hematocrit 28.0 L Mean Corpuscular Volume 95.2 Mean Corpuscular Hemoglobin 32.0 Mean Corpuscular Hemoglobin Concent 33.6 Red Cell Distribution Width 13.2 Platelet Count 404 # Mean Platelet Volume 10.3 Immature Granulocytes % 0.600 H Neutrophils % 40.4 Lymphocytes % 52.3 H Monocytes % 4.4 Eosinophils % 1.5 Basophils % 0.8 Nucleated Red Blood Cells % 0.0 Immature Granulocytes # 0.040 H Neutrophils # 2.9 Lymphocytes # 3.8 H Monocytes # 0.3 Eosinophils # 0.1 Basophils # 0.1 Nucleated Red Blood Cells # 0.0 Sodium Level 144 Potassium Level 3.6 Chloride Level 111 H Carbon Dioxide Level 25 Anion Gap 8 Blood Urea Nitrogen 18 Creatinine 1.10 Est Glomerular Filtrat Rate mL/min > 60 Glucose Level 89 Calcium Level 8.6 Subjective 24 Hr Interval Summary Free Text/Dictation Patient states tolerating diet but now with multiple episodes of diarrhea. No acute overnight events. Exam/Review of Systems Exam Vitals Vital Signs Date Temp Pulse Resp B/P (MAP) Pulse Ox O2 O2 Flow FiO2 Time Delivery Rate 08/17/18 98.1 74 16 121/59 98 Room Air 14:14 (79) 08/16/18 15 08:20 Intake and Output 08/16/18 08/16/18 08/17/18 1515:00 23:00 07:00 IntakeIntake Total 80 ml BalanceBalance 80 ml Exam General: Patient is pleasant, currently lying in bed in no acute distress Neck: Supple Lungs: Clear to auscultation bilaterally, no wheezing or rhonchi Heart: Normal S1-S2, Regular rhythm and rate. No murmur, S3, or S4 Abdomen: Soft , nontender, nondistended , bowel sounds are present. No guarding no rebound tenderness Extremities: Normal to inspection, no edema no cyanosis Skin: no rashes or lesions Results Results 24hrs Laboratory Tests Test 08/17/18 05:13 White Blood Count 7.2 Red Blood Count 2.94 L Hemoglobin 9.4 L Hematocrit 28.0 L Mean Corpuscular Volume 95.2 Mean Corpuscular Hemoglobin 32.0 Mean Corpuscular Hemoglobin Concent 33.6 Red Cell Distribution Width 13.2 Platelet Count 404 # Mean Platelet Volume 10.3 Immature Granulocytes % 0.600 H Neutrophils % 40.4 Lymphocytes % 52.3 H Monocytes % 4.4 Eosinophils % 1.5 Basophils % 0.8 Nucleated Red Blood Cells % 0.0 Immature Granulocytes # 0.040 H Neutrophils # 2.9 Lymphocytes # 3.8 H Monocytes # 0.3 Eosinophils # 0.1 Basophils # 0.1 Nucleated Red Blood Cells # 0.0 Sodium Level 144 Potassium Level 3.6 Chloride Level 111 H Carbon Dioxide Level 25 Anion Gap 8 Blood Urea Nitrogen 18 Creatinine 1.10 Est Glomerular Filtrat Rate mL/min > 60 Glucose Level 89 Calcium Level 8.6 Medications Medication Current Medications IV Flush (NS 3 ml) 3 ml PER PROTOCOL IV ; Start 08/14/18 at 19:30 Ondansetron HCl (Zofran Inj) 4 mg Q6H PRN IV NAUSEA/VOMITING; Start 08/14/18 at 19:30 Acetaminophen (Tylenol Tab) 650 mg Q6H PRN PO .PAIN 1-3 OR TEMP; Start 08/14/18 at 19:30 Acetaminophen/ Hydrocodone Bitart ([place] (5/325)) 1 tab Q6H PRN PO .MOD PAIN 4- 6; Start 08/14/18 at 19:30 Morphine Sulfate (morphine) 2 mg Q4H PRN IV .SEVERE PAIN 7-10; Start 08/14/18 at 19:30 Docusate Sodium (Colace) 100 mg Q12H PRN PO .CONSTIPATION; Start 08/14/18 at 19:30 Magnesium Hydroxide (Milk Of Mag) 30 ml DAILY PRN PO .CONSTIPATION; Start 08/14/18 at 19:30 Lorazepam (Ativan) 0.5 mg Q6H PRN IV ANXIETY; Start 08/14/18 at 19:30 Sodium Chloride 1,000 ml @ 100 mls/hr Q10H IV Last administered on 08/17/18 07:56; Admin Dose 100 MLS/HR; Start 08/14/18 at 19:22 Albuterol/ Ipratropium (Duoneb) 3 ml Q4H RESP THERAPY PRN HHN SHORTNESS OF BREATH; Start 08/14/18 at 19:30 Hydralazine HCl (Apresoline) 10 mg Q6H PRN IV ELEVATED BLOOD PRESSURE; Start 08/14/18 at 19:30 Nitroglycerin (Nitroglycerin (Sl Tab) 0.4 Mg) 1 tab Q5M PRN SL ANGINA; Start 08/14/18 at 19:30 Quetiapine Fumarate (Seroquel) 50 mg QAM PO Last administered on 08/17/18 09:25; Admin Dose 50 MG; Start 08/15/18 at 09:00 Patient Own Medication 1 ea QPM PO Last administered on 08/16/18 21:13; Admin Dose 1 EA; Start 08/14/18 at 22:30 Pantoprazole 80 mg/Sodium Chloride 100 ml @ 10 mls/hr Q10H IV Last adm inistered on 08/17/18 07:57; Admin Dose 10 MLS/HR; Start 08/15/18 at 16:30 MASHA ORTIZ MD August 17, 2018 16:40
[2018-08-17 20:30] VITALS: BP 117/68; PULSE 71; RESP 18
[2018-08-17] MEDS: QUETIAPINE 150 MG PO SCH (21:01)
[2018-08-18 02:19] VITALS: BP 124/69; PULSE 58; RESP 18
[2018-08-18] MEDS: PANTOPRAZOLE IV 80 MG in SOD CHLORIDE 0.9% 100 ML IV SCH (04:51)
[2018-08-18 08:00] VITALS: BP 124/72; PULSE 72; RESP 18
[2018-08-18] MEDS: QUETIAPINE 25 MG TAB PO SCH (08:22)
[2018-08-18 14:00] VITALS: BP 131/65; PULSE 64; RESP 18
--- NOTE | 2018-08-18 14:08 | PN ---
Date/Time of Note Date/Time of Note DATE: 08/18/18 TIME: 14:04 Assessment/Plan VTE Prophylaxis Risk score (from Ns)>0 risk: 2 SCD applied (from Ns): Yes Pharmacological prophylaxis: other (scds) Lines/Catheters IV [facility] Type (from [facility]): Peripheral IV Assessment/Plan Hospital Course Summary Assessment and Plan: Assessment: Melena EGD 08/16/2018 Patient appears to have recent upper GI bleed, however his urgent EGD did not show any active bleeding to the third portion of the duodenum. No blood noted at all in the upper GI tract However, his hemoglobin continues to drop -SB series- Normal small bowel study. Recent choledocholithiasis status post ERCP with sphincterotomy Schizophrenia disorder Diarrhea- resolved Plan: Monitor labs Stool studies- negative Continue PPI BID Pt c/o some dizziness- if stable over night- ok to dc home in am- pt to f/u with GI for colonoscopy screening Patient seen in collaboration with Dr. Mckeon Subjective: Course reviewed with nursing staff Patient interviewed and examined All labs, imaging and other results reviewed Patient c/o some dizziness, no c/o n/v or abd pain Diarrhea- resolved, HGB improving PHYSICAL EXAMINATION: GENERAL: Alert & oriented x 3, in no acute distress SKIN: No lesions HEAD: Normocephalic, atraumatic, no tenderness. EYES: Pupils equal reactive to light and accommodation, no discharge. EARS/NOSE AND THROAT: Ears normal, nose normal. NECK: Supple, no masses CHEST: Inspection within normal limits. CARDIOVASCULAR: Heart: Regular rate and rhythm, no murmurs RESPIRATORY: Lungs clear to auscultation GASTROINTESTINAL AND LIVER: Abdomen: Soft, non tenderness, non-distended, no hernias, no masses, no organomegaly, no ascites, no guarding, no rebound tenderness, normoactive bowel sounds. Rectal: Deferred. EXTREMITIES: No cyanosis, clubbing or edema. Result Diagram: 08/18/18 0508 08/18/18 0508 Results 24hrs Laboratory Tests Test 08/18/18 05:08 White Blood Count 8.1 Red Blood Count 3.20 L Hemoglobin 10.1 L Hematocrit 30.2 L Mean Corpuscular Volume 94.4 Mean Corpuscular Hemoglobin 31.6 Mean Corpuscular Hemoglobin Concent 33.4 Red Cell Distribution Width 13.2 Platelet Count 444 H Mean Platelet Volume 10.3 Immature Granulocytes % 0.700 H Neutrophils % 41.5 Lymphocytes % 49.5 Monocytes % 4.7 Eosinophils % 2.6 Basophils % 1.0 Nucleated Red Blood Cells % 0.0 Immature Granulocytes # 0.060 H Neutrophils # 3.4 Lymphocytes # 4.0 H Monocytes # 0.4 Eosinophils # 0.2 Basophils # 0.1 Nucleated Red Blood Cells # 0.0 Sodium Level 143 Potassium Level 4.1 Chloride Level 108 Carbon Dioxide Level 26 Anion Gap 9 Blood Urea Nitrogen 13 Creatinine 1.13 Est Glomerular Filtrat Rate mL/min > 60 Glucose Level 100 Calcium Level 9.2 Exam/Review of Systems Exam Vitals Vital Signs Date Temp Pulse Resp B/P (MAP) Pulse Ox O2 O2 Flow FiO2 Time Delivery Rate 08/18/18 98.2 72 18 124/72 96 08:00 (89) 08/17/18 Room Air 14:14 08/16/18 15 08:20 Intake and Output 08/17/18 08/17/18 08/18/18 1515:00 23:00 07:00 IntakeIntake Total 500 ml 1310 ml 2 ml OutputOutput Total 1 ml 1 ml BalanceBalance 499 ml 1309 ml 2 ml Results Results 24hrs Laboratory Tests Test 08/18/18 05:08 White Blood Count 8.1 Red Blood Count 3.20 L Hemoglobin 10.1 L Hematocrit 30.2 L Mean Corpuscular Volume 94.4 Mean Corpuscular Hemoglobin 31.6 Mean Corpuscular Hemoglobin Concent 33.4 Red Cell Distribution Width 13.2 Platelet Count 444 H Mean Platelet Volume 10.3 Immature Granulocytes % 0.700 H Neutrophils % 41.5 Lymphocytes % 49.5 Monocytes % 4.7 Eosinophils % 2.6 Basophils % 1.0 Nucleated Red Blood Cells % 0.0 Immature Granulocytes # 0.060 H Neutrophils # 3.4 Lymphocytes # 4.0 H Monocytes # 0.4 Eosinophils # 0.2 Basophils # 0.1 Nucleated Red Blood Cells # 0.0 Sodium Level 143 Potassium Level 4.1 Chloride Level 108 Carbon Dioxide Level 26 Anion Gap 9 Blood Urea Nitrogen 13 Creatinine 1.13 Est Glomerular Filtrat Rate mL/min > 60 Glucose Level 100 Calcium Level 9.2 Medications Medication Current Medications IV Flush (NS 3 ml) 3 ml PER PROTOCOL IV ; Start 08/14/18 at 19:30 Ondansetron HCl (Zofran Inj) 4 mg Q6H PRN IV NAUSEA/VOMITING; Start 08/14/18 at 19:30 Acetaminophen (Tylenol Tab) 650 mg Q6H PRN PO .PAIN 1-3 OR TEMP; Start 08/14/18 at 19:30 Acetaminophen/ Hydrocodone Bitart ([place] (5/325)) 1 tab Q6H PRN PO .MOD PAIN 4- 6; Start 08/14/18 at 19:30 Morphine Sulfate (morphine) 2 mg Q4H PRN IV .SEVERE PAIN 7-10; Start 08/14/18 at 19:30 Docusate Sodium (Colace) 100 mg Q12H PRN PO .CONSTIPATION; Start 08/14/18 at 19:30 Magnesium Hydroxide (Milk Of Mag) 30 ml DAILY PRN PO .CONSTIPATION; Start 08/14/18 at 19:30 Lorazepam (Ativan) 0.5 mg Q6H PRN IV ANXIETY; Start 08/14/18 at 19:30 Albuterol/ Ipratropium (Duoneb) 3 ml Q4H RESP THERAPY PRN HHN SHORTNESS OF B REATH; Start 08/14/18 at 19:30 Hydralazine HCl (Apresoline) 10 mg Q6H PRN IV ELEVATED BLOOD PRESSURE; Start 08/14/18 at 19:30 Nitroglycerin (Nitroglycerin (Sl Tab) 0.4 Mg) 1 tab Q5M PRN SL ANGINA; Start 08/14/18 at 19:30 Quetiapine Fumarate (Seroquel) 50 mg QAM PO Last administered on 08/18/18at 0 8:22; Admin Dose 50 MG; Start 08/15/18 at 09:00 Patient Own Medication 1 ea QPM PO Last administered on 08/17/18at 21:01; Admin Dose 1 EA; Start 08/14/18 at 22:30 Pantoprazole (Protonix Tab) 40 mg BID@,18 PO ; Start 08/18/18 at 18:00 KONG DOMÍNGUEZ August 18, 2018 14:08
--- NOTE | 2018-08-18 16:28 | PN ---
Date/Time of Note Date/Time of Note DATE: 08/18/18 TIME: 16:26 Assessment/Plan VTE Prophylaxis Risk score ([place] [facility] [place] risk: 2 SCD applied (from [facility] [place] Yes Pharmacological prophylaxis: NA/contraindicated Pharm contraindication: bleeding Lines/Catheters IV Catheter Type (from [place]): Peripheral IV Assessment/Plan Assessment/Plan 1. Acute upper GI bleed- resolved - GI on board and appreciate recommendations. s/p EGD with normal findings - small bowel series resulted as normal - PPI - monitor for further episodes 2. Acute blood loss anemia- resolved - no need for transfusions at this time - hemoglobin trending up 3. Mood disorder - continue home medications 4. Diarrhea - stool studies negative - most likely from barium given during bowel series 5. Disposition - if dizziness resolves, will d/c tomorrow Result Diagram: 08/18/18 0508 08/18/18 0508 Results 24hrs Laboratory Tests Test 08/18/18 05:08 White Blood Count 8.1 Red Blood Count 3.20 L Hemoglobin 10.1 L Hematocrit 30.2 L Mean Corpuscular Volume 94.4 Mean Corpuscular Hemoglobin 31.6 Mean Corpuscular Hemoglobin Concent 33.4 Red Cell Distribution Width 13.2 Platelet Count 444 H Mean Platelet Volume 10.3 Immature Granulocytes % 0.700 H Neutrophils % 41.5 Lymphocytes % 49.5 Monocytes % 4.7 Eosinophils % 2.6 Basophils % 1.0 Nucleated Red Blood Cells % 0.0 Immature Granulocytes # 0.060 H Neutrophils # 3.4 Lymphocytes # 4.0 H Monocytes # 0.4 Eosinophils # 0.2 Basophils # 0.1 Nucleated Red Blood Cells # 0.0 Sodium Level 143 Potassium Level 4.1 Chloride Level 108 Carbon Dioxide Level 26 Anion Gap 9 Blood Urea Nitrogen 13 Creatinine 1.13 Est Glomerular Filtrat Rate mL/min > 60 Glucose Level 100 Calcium Level 9.2 Subjective 24 Hr Interval Summary Free Text/Dictation Patient states he's feeling dizziness especially when he was taking a shower this am. No further diarrhea episodes. Exam/Review of Systems Exam Vitals Vital Signs Date Temp Pulse Resp B/P (MAP) Pulse Ox O2 O2 Flow FiO2 Time Delivery Rate 08/18/18 97.6 64 18 131/65 98 Room Air 14:00 (87) 08/16/18 15 08:20 Intake and Output 08/17/18 08/17/18 08/18/18 1515:00 23:00 07:00 IntakeIntake Total 500 ml 1310 ml 2 ml OutputOutput Total 1 ml 1 ml BalanceBalance 499 ml 1309 ml 2 ml Exam General: Patient is pleasant, currently lying in bed in no acute distress Neck: Supple Lungs: Clear to auscultation bilaterally, no wheezing or rhonchi Heart: Normal S1-S2, Regular rhythm and rate. No murmur, S3, or S4 Abdomen: Soft , nontender, nondistended , bowel sounds are present. No guarding no rebound tenderness Extremities: Normal to inspection, no edema no cyanosis Skin: no rashes or lesions Results Results 24hrs Laboratory Tests Test 08/18/18 05:08 White Blood Count 8.1 Red Blood Count 3.20 L Hemoglobin 10.1 L Hematocrit 30.2 L Mean Corpuscular Volume 94.4 Mean Corpuscular Hemoglobin 31.6 Mean Corpuscular Hemoglobin Concent 33.4 Red Cell Distribution Width 13.2 Platelet Count 444 H Mean Platelet Volume 10.3 Immature Granulocytes % 0.700 H Neutrophils % 41.5 Lymphocytes % 49.5 Monocytes % 4.7 Eosinophils % 2.6 Basophils % 1.0 Nucleated Red Blood Cells % 0.0 Immature Granulocytes # 0.060 H Neutrophils # 3.4 Lymphocytes # 4.0 H Monocytes # 0.4 Eosinophils # 0.2 Basophils # 0.1 Nucleated Red Blood Cells # 0.0 Sodium Level 143 Potassium Level 4.1 Chloride Level 108 Carbon Dioxide Level 26 Anion Gap 9 Blood Urea Nitrogen 13 Creatinine 1.13 Est Glomerular Filtrat Rate mL/min > 60 Glucose Level 100 Calcium Level 9.2 Medications Medication Current Medications IV Flush (NS 3 ml) 3 ml PER PROTOCOL IV ; Start 08/14/18 at 19:30 Ondansetron HCl (Zofran Inj) 4 mg Q6H PRN IV NAUSEA/VOMITING; Start 08/14/18 at 19:30 Acetaminophen (Tylenol Tab) 650 mg Q6H PRN PO .PAIN 1-3 OR TEMP; Start 08/14/18 at 19:30 Acetaminophen/ Hydrocodone Bitart ([place] (5/325)) 1 tab Q6H PRN PO .MOD PAIN 4- 6; Start 08/14/18 at 19:30 Morphine Sulfate (morphine) 2 mg Q4H PRN IV .SEVERE PAIN 7-10; Start 08/14/18 at 19:30 Docusate Sodium (Colace) 100 mg Q12H PRN PO .CONSTIPATION; Start 08/14/18 at 19:30 Magnesium Hydroxide (Milk Of Mag) 30 ml DAILY PRN PO .CONSTIPATION; Start 08/14/18 at 19:30 Lorazepam (Ativan) 0.5 mg Q6H PRN IV ANXIETY; Start 08/14/18 at 19:30 Albuterol/ Ipratropium (Duoneb) 3 ml Q4H RESP THERAPY PRN HHN SHORTNESS OF BREATH; Start 08/14/18 at 19:30 Hydralazine HCl (Apresoline) 10 mg Q6H PRN IV ELEVATED BLOOD PRESSURE; Start 08/14/18 at 19:30 Nitroglycerin (Nitroglycerin (Sl Tab) 0.4 Mg) 1 tab Q5M PRN SL ANGINA; Start 08/14/18 at 19:30 Quetiapine Fumarate (Seroquel) 50 mg QAM PO Last administered on 08/18/18at 08:22; Admin Dose 50 MG; Start 08/15/18 at 09:00 Patient Own Medication 1 ea QPM PO Last administered on 08/17/18at 21:01; Admin Dose 1 EA; Start 08/14/18 at 22:30 Pantoprazole (Protonix Tab) 40 mg BID@06,18 PO ; Start 08/18/18 at 18:00 MASHA ORTIZ MD August 18, 2018 16:28
[2018-08-18] MEDS: PANTOPRAZOLE (EC) 40 MG TAB PO SCH (17:17)
[2018-08-18 20:33] VITALS: BP 124/66; PULSE 65; RESP 18
[2018-08-18] MEDS: QUETIAPINE 150 MG PO SCH (21:28)
[2018-08-19 02:29] VITALS: BP 105/62; PULSE 61; RESP 16
[2018-08-19] MEDS: PANTOPRAZOLE (EC) 40 MG TAB PO SCH (05:52)
[2018-08-19 06:03] VITALS: BP 171/100
[2018-08-19 07:20] VITALS: BP 122/65; PULSE 61; RESP 18
[2018-08-19] MEDS: QUETIAPINE 25 MG TAB PO SCH (08:48)
--- NOTE | 2018-08-19 11:32 | PN ---
Date/Time of Note Date/Time of Note DATE: 08/19/18 TIME: 11:24 Assessment/Plan VTE Prophylaxis Risk score (from [facility])>0 risk: 2 SCD applied (from [facility]): Yes Pharmacological prophylaxis: other (scds) Lines/Catheters IV C[facility]ter Type (from [facility]): Peripheral IV Assessment/Plan Hospital Course Summary Assessment and Plan: Assessment: Melena EGD 08/16/2018 Patient appears to have recent upper GI bleed, however his urgent EGD did not show any active bleeding to the third portion of the duodenum. No blood noted at all in the upper GI tract However, his hemoglobin continues to drop -SB series- Normal small bowel study. Recent choledocholithiasis status post ERCP with sphincterotomy Schizophrenia disorder Diarrhea- resolved Plan: Continue PPI BID x 4weeks Pt cleared for out-pt management for GI point of view- Gi will sign off. Patient to f/u with GI after discharge- will require colonoscopy screening Patient seen in collaboration with Dr. Quijano Subjective: Course reviewed with nursing staff Patient interviewed and examined All labs, imaging and other results reviewed Patient feels well overall, had x1 episodes of dizziness when he quickly stood up, HGB improved since admission- still low yet stable. Discussed with patient it will take time for HGB to improve. Discussed diet options. Pt states he has a f/u appt with His PCP for Thursday. PHYSICAL EXAMINATION: GENERAL: Alert & oriented x 3, in no acute distress SKIN: No lesions HEAD: Normocephalic, atraumatic, no tenderness. EYES: Pupils equal reactive to light and accommodation, no discharge. EARS/NOSE AND THROAT: Ears normal, nose normal. NECK: Supple, no masses CHEST: Inspection within normal limits. CARDIOVASCULAR: Heart: Regular rate and rhythm, no murmurs RESPIRATORY: Lungs clear to auscultation GASTROINTESTINAL AND LIVER: Abdomen: Soft, non tenderness, non-distended, no hernias, no masses, no organomegaly, no ascites, no guarding, no rebound tenderness, normoactive bowel sounds. Rectal: Deferred. EXTREMITIES: No cyanosis, clubbing or edema. Result Diagram: 08/19/18 0656 08/19/18 0656 Results 24hrs Laboratory Tests Test 08/19/18 06:56 White Blood Count 7.9 Red Blood Count 3.11 L Hemoglobin 9.9 L Hematocrit 29.6 L Mean Corpuscular Volume 95.2 Mean Corpuscular Hemoglobin 31.8 Mean Corpuscular Hemoglobin Concent 33.4 Red Cell Distribution Width 13.5 Platelet Count 446 H Mean Platelet Volume 10.3 Immature Granulocytes % 0.600 H Neutrophils % 49.5 Lymphocytes % 41.4 Monocytes % 4.9 Eosinophils % 2.7 Basophils % 0.9 Nucleated Red Blood Cells % 0.0 Immature Granulocytes # 0.050 H Neutrophils # 3.9 Lymphocytes # 3.3 H Monocytes # 0.4 Eosinophils # 0.2 Basophils # 0.1 Nucleated Red Blood Cells # 0.0 Sodium Level 143 Potassium Level 3.4 L Chloride Level 108 Carbon Dioxide Level 28 Anion Gap 7 Blood Urea Nitrogen 12 Creatinine 1.09 Est Glomerular Filtrat Rate mL/min > 60 Glucose Level 96 Calcium Level 8.8 Exam/Review of Systems Exam Vitals Vital Signs Date Temp Pulse Resp B/P (MAP) Pulse Ox O2 O2 Flow FiO2 Time Delivery Rate 08/19/18 98.2 61 18 122/65 97 Room Air 07:20 (84) 08/16/18 15 08:20 Intake and Output 08/18/18 08/18/18 08/19/18 1515:00 23:00 07:00 IntakeIntake Total 98 ml 900 ml BalanceBalance 98 ml 900 ml Results Results 24hrs Laboratory Tests Test 08/19/18 06:56 White Blood Count 7.9 Red Blood Count 3.11 L Hemoglobin 9.9 L Hematocrit 29.6 L Mean Corpuscular Volume 95.2 Mean Corpuscular Hemoglobin 31.8 Mean Corpuscular Hemoglobin Concent 33.4 Red Cell Distribution Width 13.5 Platelet Count 446 H Mean Platelet Volume 10.3 Immature Granulocytes % 0.600 H Neutrophils % 49.5 Lymphocytes % 41.4 Monocytes % 4.9 Eosinophils % 2.7 Basophils % 0.9 Nucleated Red Blood Cells % 0.0 Immature Granulocytes # 0.050 H Neutrophils # 3.9 Lymphocytes # 3.3 H Monocytes # 0.4 Eosinophils # 0.2 Basophils # 0.1 Nucleated Red Blood Cells # 0.0 Sodium Level 143 Potassium Level 3.4 L Chloride Level 108 Carbon Dioxide Level 28 Anion Gap 7 Blood Urea Nitrogen 12 Creatinine 1.09 Est Glomerular Filtrat Rate mL/min > 60 Glucose Level 96 Calcium Level 8.8 Medications Medication Current Medications IV Flush (NS 3 ml) 3 ml PER PROTOCOL IV ; Start 08/14/18 at 19:30 Ondansetron HCl (Zofran Inj) 4 mg Q6H PRN IV NAUSEA/VOMITING; Start 08/14/18 at 19:30 Acetaminophen (Tylenol Tab) 650 mg Q6H PRN PO .PAIN 1-3 OR TEMP; Start 08/14/18 at 19:30 Acetaminophen/ Hydrocodone Bitart ([place] (5/325)) 1 tab Q6H PRN PO .MOD PAIN 4-6; Start 08/14/18 at 19:30 Morphine Sulfate (morphine) 2 mg Q4H PRN IV .SEVERE PAIN 7-10; Start 08/14/18 at 19:30 Docusate Sodium (Colace) 100 mg Q12H PRN PO .CONSTIPATION; Start 08/14/18 at 19:30 Magnesium Hydroxide (Milk Of Mag) 30 ml DAILY PRN PO .CONSTIPATION; Start 08/14/18 at 19:30 Lorazepam (Ativan) 0.5 mg Q6H PRN IV ANXIETY; Start 08/14/18 at 19:30 Albuterol/ Ipratropium (Duoneb) 3 ml Q4H RESP THERAPY PRN HHN SHORTNESS OF BREATH; Start 08/14/18 at 19:30 Hydralazine HCl (Apresoline) 10 mg Q6H PRN IV ELEVATED BLOOD PRESSURE; Start 08/14/18 at 19:30 Nitroglycerin (Nitroglycerin (Sl Tab) 0.4 Mg) 1 tab Q5M PRN SL ANGINA; Start 08/14/18 at 19:30 Quetiapine Fumarate (Seroquel) 50 mg QAM PO Last administered on 08/19/18at 08:48; Admin Dose 50 MG; Start 08/15/18 at 09:00 Patient Own Medication 1 ea QPM PO Last administered on 08/18/18at 21:28; Admin Dose 1 EA; Start 08/14/18 at 22:30 Pantoprazole (Protonix Tab) 40 mg BID@06,18 PO Last administered on 08/19/18at 05:52; Admin Dose 40 MG; Start 08/18/18 at 18:00 KONG DOMÍNGUEZ August 19, 2018 11:32
[2018-08-19 14:10] VITALS: BP 116/61; PULSE 72; RESP 16
--- NOTE | 2018-08-19 14:50 | PN ---
Date/Time of Note Date/Time of Note DATE: 08/19/18 TIME: 14:46 Assessment/Plan VTE Prophylaxis Risk score (from [facility])>0 risk: 2 SCD applied (from [facility] [place]): Yes Pharmacological prophylaxis: NA/contraindicated Pharm contraindication: bleeding Lines/Catheters IV Catheter Type (from [facility]): Peripheral IV Assessment/Plan Assessment/Plan 1. Dizziness - most likely positional 2. Acute upper GI bleed- resolved - GI on board and appreciate recommendations. s/p EGD with normal findings - small bowel series resulted as normal - PPI - monitor for further episodes 3. Acute blood loss anemia- resolved - no need for transfusions at this time - hemoglobin stable 4. Mood disorder - continue home medications 5. Diarrhea - stool studies negative - resolved 6. Disposition - Medically stable for discharge home Result Diagram: 08/19/18 0656 08/19/18 0656 Results 24hrs Laboratory Tests Test 08/19/18 06:56 White Blood Count 7.9 Red Blood Count 3.11 L Hemoglobin 9.9 L Hematocrit 29.6 L Mean Corpuscular Volume 95.2 Mean Corpuscular Hemoglobin 31.8 Mean Corpuscular Hemoglobin Concent 33.4 Red Cell Distribution Width 13.5 Platelet Count 446 H Mean Platelet Volume 10.3 Immature Granulocytes % 0.600 H Neutrophils % 49.5 Lymphocytes % 41.4 Monocytes % 4.9 Eosinophils % 2.7 Basophils % 0.9 Nucleated Red Blood Cells % 0.0 Immature Granulocytes # 0.050 H Neutrophils # 3.9 Lymphocytes # 3.3 H Monocytes # 0.4 Eosinophils # 0.2 Basophils # 0.1 Nucleated Red Blood Cells # 0.0 Sodium Level 143 Potassium Level 3.4 L Chloride Level 108 Carbon Dioxide Level 28 Anion Gap 7 Blood Urea Nitrogen 12 Creatinine 1.09 Est Glomerular Filtrat Rate mL/min > 60 Glucose Level 96 Calcium Level 8.8 Subjective 24 Hr Interval Summary Free Text/Dictation Patient doing well but does admit to an episode of dizziness when he was looking down at his phone and got up quickly from bed. Also complaining of abdominal cramping but drank 3 apple juices recently. Exam/Review of Systems Exam Vitals Vital Signs Date Temp Pulse Resp B/P (MAP) Pulse Ox O2 O2 Flow FiO2 Time Delivery Rate 08/19/18 98.2 72 16 116/61 95 Room Air 14:10 (79) 08/16/18 15 08:20 Intake and Output 08/18/18 08/18/18 08/19/18 1515:00 23:00 07:00 IntakeIntake Total 98 ml 900 ml BalanceBalance 98 ml 900 ml Exam General: Patient is pleasant, currently lying in bed in no acute distress Neck: Supple Lungs: Clear to auscultation bilaterally, no wheezing or rhonchi Heart: Normal S1-S2, Regular rhythm and rate. No murmur, S3, or S4 Abdomen: Soft , nontender, nondistended , bowel sounds are present. No guarding no rebound tenderness Extremities: Normal to inspection, no edema no cyanosis Skin: no rashes or lesions Results Results 24hrs Laboratory Tests Test 08/19/18 06:56 White Blood Count 7.9 Red Blood Count 3.11 L Hemoglobin 9.9 L Hematocrit 29.6 L Mean Corpuscular Volume 95.2 Mean Corpuscular Hemoglobin 31.8 Mean Corpuscular Hemoglobin Concent 33.4 Red Cell Distribution Width 13.5 Platelet Count 446 H Mean Platelet Volume 10.3 Immature Granulocytes % 0.600 H Neutrophils % 49.5 Lymphocytes % 41.4 Monocytes % 4.9 Eosinophils % 2.7 Basophils % 0.9 Nucleated Red Blood Cells % 0.0 Immature Granulocytes # 0.050 H Neutrophils # 3.9 Lymphocytes # 3.3 H Monocytes # 0.4 Eosinophils # 0.2 Basophils # 0.1 Nucleated Red Blood Cells # 0.0 Sodium Level 143 Potassium Level 3.4 L Chloride Level 108 Carbon Dioxide Level 28 Anion Gap 7 Blood Urea Nitrogen 12 Creatinine 1.09 Est Glomerular Filtrat Rate mL/min > 60 Glucose Level 96 Calcium Level 8.8 Medications Medication Current Medications IV Flush (NS 3 ml) 3 ml PER PROTOCOL IV ; Start 08/14/18 at 19:30 Ondansetron HCl (Zofran Inj) 4 mg Q6H PRN IV NAUSEA/VOMITING; Start 08/14/18 at 19:30 Acetaminophen (Tylenol Tab) 650 mg Q6H PRN PO .PAIN 1-3 OR TEMP; Start 08/14/18 at 19:30 Acetaminophen/ Hydrocodone Bitart ([place] (5/325)) 1 tab Q6H PRN PO .MOD PAIN 4- 6; Start 08/14/18 at 19:30 Morphine Sulfate (morphine) 2 mg Q4H PRN IV .SEVERE PAIN 7-10; Start 08/14/18 at 19:30 Docusate Sodium (Colace) 100 mg Q12H PRN PO .CONSTIPATION; Start 08/14/18 at 19:30 Magnesium Hydroxide (Milk Of Mag) 30 ml DAILY PRN PO .CONSTIPATION; Start 08/14/18 at 19:30 Lorazepam (Ativan) 0.5 mg Q6H PRN IV ANXIETY; Start 08/14/18 at 19:30 Albuterol/ Ipratropium (Duoneb) 3 ml Q4H RESP THERAPY PRN HHN SHORTNESS OF BREATH; Start 08/14/18 at 19:30 Hydralazine HCl (Apresoline) 10 mg Q6H PRN IV ELEVATED BLOOD PRESSURE; Start 08/14/18 at 19:30 Nitroglycerin (Nitroglycerin (Sl Tab) 0.4 Mg) 1 tab Q5M PRN SL ANGINA; Start 08/14/18 at 19:30 Quetiapine Fumarate (Seroquel) 50 mg QAM PO Last administered on 08/19/18at 08:48; Admin Dose 50 MG; Start 08/15/18 at 09:00 Patient Own Medication 1 ea QPM PO Last administered on 08/18/18at 21:28; Admin Dose 1 EA; Start 08/14/18 at 22:30 Pantoprazole (Protonix Tab) 40 mg BID@06,18 PO Last administered on 08/19/18at 05:52; Admin Dose 40 MG; Start 08/18/18 at 18:00 MASHA ORTIZ MD August 19, 2018 14:50
[2018-08-19] MEDS ORDERED: PANT40TA4 PO (14:54)
--- NOTE | 2018-08-19 14:57 | PDOCDIS ---
Discharge Instructions DIAGNOSIS Discharge Diagnosis 1. Acute upper GI bleed- resolved 2. Acute blood loss anemia- improved 3. Mood disorder 4. Diarrhea- resolved CONDITION [id number] Patient Condition: [id number] Stable HOME CARE INSTRUCTIONS: [id number] Diet Instructions: [id number] Low Fat /Cholesterol FOLLOW UP/APPOINTMENTS Follow-up Plan 1. Follow up with your primary care physician in 1 week 2. Per GI recommendations, take pantoprazole twice a day for 4 weeks then can take as needed for acid reflux symptoms 3. You will need to have a colonoscopy performed and can ask your PCP for referral 4. if experiencing any concerning symptoms, please go to the closest emergency department MASHA ORTIZ MD August 19, 2018 14:57
--- NOTE | 2018-08-19 18:36 | DS ---
Date/Time of Note Date/Time of Note DATE: 08/19/18 TIME: 18:34 Discharge Summary Admission/Discharge Info Admit Date/Time August 14, 2018 at 19:12 Discharge Date/Time August 19, 2018 at 16:48 Discharge Diagnosis 1. Acute upper GI bleed- resolved 2. Acute blood loss anemia- improved 3. Mood disorder 4. Diarrhea- resolved Patient Condition: Stable Consults GI- Dr. Quijano Procedures EGD 08/16/2018 Patient appears to have recent upper GI bleed, however his urgent EGD did not show any active bleeding to the third portion of the duodenum. No blood noted at all in the upper GI tract However, his hemoglobin continues to drop -SB series- Normal small bowel study. Hx of Present Illness This is a 53-year-old male with a history of depression, schizophrenia/anxiety who presents the ER complaining of dizziness and dark stool. Patient was admitted here about 2 weeks ago for obstructive jaundice. He underwent ERCP with sphincterotomy. Patient now coming back complaining of dark stools and dizziness especially when he gets up from seated position. Denied hematemesis or BRBPR. When he was discharged from here about 10 days ago, his hemoglobin was 15 now at 11. Hospital Course Patient was admitted for workout of acute GI bleed and GI was consulted. He was taken for EGD with no acute findings contributing to anemia. Patient underwent small bowel series to rule out any lesions in small bowel and was negative. Patients diet was advanced and was tolerating PO intake. Patients hemoglobin was improving daily as well with no further episodes of dark stool. Patient did experience diarrhea after given contrast which resolved but lead to dizziness as well. Patients dizziness improved and was ambulating and eating without any issues. Patient was discharged home in good condition. Home Meds Active Scripts Pantoprazole* (Pantoprazole*) 40 Mg Tablet., 40 MG PO BID@06,18 for 30 Days, #60 TAB 1 Refill Prov:MASHA ORTIZ MD 08/19/18 Reported Medications Clonazepam* (Clonazepam*) 1 Mg Tablet, 1 MG PO BID PRN for ANXIETY, TAB 01/20/18 Quetiapine Fumarate* (Seroquel* XR) 150 Mg Tab.sr.24h, 150 MG PO QPM, #30 TAB 01/20/18 Quetiapine Fumarate* (Seroquel*) 50 Mg Tablet, 50 MG PO QAM, TAB 01/20/18 Follow-up Plan 1. Follow up with your primary care physician in 1 week 2. Per GI recommendations, take pantoprazole twice a day for 4 weeks then can take as needed for acid reflux symptoms 3. You will need to have a colonoscopy performed and can ask your PCP for referral 4. if experiencing any concerning symptoms, please go to the closest emergency department Primary Care Provider Not On Staff Doctor Time spent on discharge: > 30 minutes Pending Labs Laboratory Tests Test 08/19/18 06:56 White Blood Count 7.9 10^3/ul (4.8-10.8) Red Blood Count 3.11 10^6/ul (4.70-6.10) Hemoglobin 9.9 g/dl (14.0-18.0) Hematocrit 29.6 % (42.0-52.0) Mean Corpuscular Volume 95.2 fl (82.0-101.0) Mean Corpuscular Hemoglobin 31.8 pg (29.0-33.0) Mean Corpuscular Hemoglobin Concent 33.4 g/dl (32.0-37.0) Red Cell Distribution Width 13.5 % (11.5-14.5) Platelet Count 446 10^3/UL (140-415) Mean Platelet Volume 10.3 fl (7.4-10.4) Immature Granulocytes % 0.600 % (0.001-0.429) Neutrophils % 49.5 % (39.0-77.0) Lymphocytes % 41.4 % (15.0-51.0) Monocytes % 4.9 % (0.0-11.0) Eosinophils % 2.7 % (0.0-7.0) Basophils % 0.9 % (0.0-2.0) Nucleated Red Blood Cells % 0.0 /100WBC (0.0-0.0) Immature Granulocytes # 0.050 10^3/ul (0.0-0.031) Neutrophils # 3.9 10^3/ul (1.6-7.5) Lymphocytes # 3.3 10^3/ul (0.8-2.9) Monocytes # 0.4 10^3/ul (0.3-0.9) Eosinophils # 0.2 10^3/ul (0.0-0.5) Basophils # 0.1 10^3/ul (0.0-0.1) Nucleated Red Blood Cells # 0.0 10^3/ul (0.0-0.0) Sodium Level 143 mmol/L (135-144) Potassium Level 3.4 mmol/L (3.5-5.1) Chloride Level 108 mmol/L (97-110) Carbon Dioxide Level 28 mmol/L (21-31) Anion Gap 7 (5-13) Blood Urea Nitrogen 12 mg/dl (7-20) Creatinine 1.09 mg/dl (0.61-1.24) Est Glomerular Filtrat Rate mL/min > 60 mL/min (>60) Glucose Level 96 mg/dl (70-220) Calcium Level 8.8 mg/dl (8.4-10.2) MASHA ORTIZ MD August 19, 2018 18:36
== END 2018-08-19 16:48 | disposition home or self-care (01) | DRG 378 ==
LOC: E/R 16:53 → PP2 19:12
PROVIDERS: ADMIT Internal Medicine; ATTEND Internal Medicine
PROC: 0DJ08ZZ Inspection of Upper Intestinal Tract, Via Natural or Artificial Opening Endoscopic (ICD-10-PCS; principal; 2018-08-16 08:00)
DX: K92.1 Melena (principal); D62 Acute posthemorrhagic anemia; F20.9 Schizophrenia, unspecified; F32.9 Major depressive disorder, single episode, unspecified; F41.9 Anxiety disorder, unspecified; E78.5 Hyperlipidemia, unspecified; R10.13 Epigastric pain; R19.7 Diarrhea, unspecified
CPT/HCPCS: 74250; 80048; 80053; 80061; 83036; 83735; 84100; 84439; 84443; 84484; 85014; 85018; 85025; 85610; 85730; 87045; 87075; 87081; 93005; 96374; 97161; C9113; J7030; Q9967